=== PATIENT | female | born 1965 | race Caucasian/White ===

== ENCOUNTER 2017-08-10 09:55 | Outpatient (RCR) | payer MEDICAID, SELFPAY ==
--- NOTE | 2017-08-11 11:09 | HP.OTFCE_ITS ---
HP OT Functional Capacity Eval - Task Lift Floor (Occasional 1-33% of Day): 10 lbs Floor (Frequent 34-66% of Day): negligible Floor (Constant 67-100% of Day): negligible Knee (Occasional 1-33% of Day): 10 lbs Knee (Frequent 34-66% of Day): negligible Knee (Constant 67-100% of Day): negligible Waist (Occasional 1-33% of Day): 10 lbs Waist (Frequent 34-66% of Day): negligible Waist (Constant 67-100% of Day): negligible Shoulder (Occasional 1-33% of Day): 10 lbs Shoulder (Frequent 34-66% of Day): negligible Shoulder (Constant 67-100% of Day): negligible Shoulder PDL: Sedentary Overhead (Occasional 1-33% of Day): 10 lbs Overhead (Frequent 34-66% of Day): negligible Overhead (Constant 67-100% of Day): negligible Overhead PDL: Sedentary Comments: Lorraine noted medical lifting restiction og 10 lbs which is what threshold was at this time despite restriction. She noted some increased pain with lifting tasks and compensations noted. - Work Activity/Posture Bending: Occasional Ability (1-33% of day) Squatting: Occasional Ability (1-33% of day) Kneeling: Occasional Ability (1-33% of day) Comments: 1-10% Reaching out: Frequent Ability (34-66% of day) Reaching up: Frequent Ability (34-66% of day) Sitting: Frequent Ability (34-66% of day) Walking: Occasional Ability (1-33% of day) Comments: 20-30%; needs break after about 5 mins. Standing: Frequent Ability (34-66% of day) Comments: 34-40% - Reference Duration Sedentary Sedentary Light Light Light Medium Medium Medium Heavy Very Heavy Heavy Occasional (0-33% of day) Frequent (34-66% of day) Constant (67-100% of day) 10 # Negligible Negligible 15 # 8 # Negligible 20 # 10# Negli. 35 # 18 # 7 # 50 # 25 # 10 # 75 # 100 # >100 # 38 # 50 # >50 # 15 # 20 # >20 # - Patient Information Height: 12.7 cm Weight:: 140 kg Hand Dominance: R - Medical History Medical History Including Restrictions: She verbalized medical restrictions for L ankle and notes she is not to lift over 10 lbs. She noted she had ankle fx in 2006 that required plate 17 screws. She noted that screws and plate removed in 2008. She verbalized restrictions even through hardware removed. SHe verblized other restrictions but unable to remember all fo them. - Diagnoses Diagnoses: Pt. 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 Currently she is appealing [employer] to get disability. She noted she has been fighting disability since 2009. - Symptoms Symptoms: Lorraine's main symptoms are severe headaches due to hemorrhages and stent surgery. Completed - Pain Pain: Pt. notes that pain 2/10 generalized t/o body at L shoulder, cervical spine, and L yoselyn. Pain increased to 3-4/10 pain. - Work History Work History: Pt. has been unemployed since 2009. She notes she was previously on light duty for 3 years. She worked for [employer] for 1x month in [place] prior to fx L ankle. [employer] let her go in 2009 according to Pt. due to not being able to accomodate light duty. 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 - ADLS ADLS: Pt. lives in [facility] with 5 steps to enter with handrail 1x side. Once in [place] everything is [place]. She noted family brings food over for her and she mircrowaves. She is still driving and notes that family will take grocery shopping when hadaches are bad. She noted botox injections every 3 months has limited heads from daily to 2x weekly. She notes that daughter , sister, and two brothers come over daily-weekly to help. She notes she has someone else around when showering due to recent syncope episode. She is (I) with ADls and some IADls. She doesn't has grab bars but does have seat in shower. No pets to care for. - Physical Examination ROM: B UE: WFL with some pain with ER in low back. B UE: WFL. Strength: B UE. deltoids: R 4-/5, L 4-/5. biceps: R 4/5, L 4/5. triceps: R 4/ 5, L 4/5. wrist extension: R 4-/5, L 4-/5. B LE: hip flexors: R 4/5, L 4/5. quadracepts: R 4/5, L 4/5. hamstrings: R 4/5, L 4/5. hip adductors: R 4/5, L 4/5. hip abductors: R 4/5, L 4/5. dorsiflexion: R 4/5, L 4/5. plantar flexion: R 4/5, L 4/5 Right Flat Ironer Strength Average: 39.66 Left Flat Ironer Strength Average: 43.00 Right Lateral Pinch Average: 14.66 Left Lateral Pinch Average: 11.33 Right Tripod Pinch Average: 14.33 Left Tripod Pinch Average: 13.66 Sensation: Pt. denies numbness and tingling B UE. She notes she does has increased pain and numbess in R LE. She noted increased frequency of burning hands when cooking so tried to limited cooking. Monofliment test completed. Results are as follows: R 2nd 3.22 3rd 3.22 4th 3.61 5th 3.22 thumb 3.61 ;L 2nd 3.22 3rd 3.22 4th 3.61 5th 3.22 thumb 3.22. Fine Motor: Pt. FMC is decreased speed but intact and WFL. Completed 9 hole pegboard test R 24.62 s, L 20.38 s Balance: Balance is fair at this time. She has increased instability on B sides. Balance is WFL. - Non Material Handling Activities Bendinx, 5x , seated break due to lightheadedness and increased loss of balanceanterior and posterior loss of balance. Needed to use extenral support of desk to promote stability. Pain 2/10. Lightheadedness and consistent anterior and posterior loss of balance are limiting factors at this time. Squattinx, 10x with external suppor tof desk, seated break, unable to complete last set of 10 fast. Pt. noted pain increased to 3/10 over hip. Needed external support of desk due to increased LOB with tasks and need for stability. Increased SOB, fair body mechanics, and need for seated break prior to continuing. Decreased LOB and increased lightheadedness limiting at this time. Kneelinx, pain increased to 5/10 pain when kneeling and sibsiding moving upright, completed 3x and ended with needed seated break. Fair bodymechnics with increased lateral lean to L side with use of extenral support of desk. Increased crepitus of R knee when completing task. Pain increased to 5/10 pain mid kneel and then subsided when returning to upright. Pain limiting factor for this activity. Reaching out/up: from standing position: Reaching out: 3x, 10x, 10 fast. Good body mechanics, no LOB, some SOB. Reaching up: 3x, 10x, 10 fast. Good body mechanics, no LOB, some SOB. Walking: Completed 15 mins of walking with 6 breaks 2 sitting and 4 standing t/ o session. First break at 3 mins 30 seconds. Exhibiting antalgic gait and increased lateral LOB to both R and L. Standin mins Sittin-40 mins. Completed with needed weight shifts as needed. Climbing Stairs: Able to complete 10 stairs with altenraing foot pattern and use fo B handrails. - Dynamic Occasional Lifting Capacity Floor Lift: 10 lbs. Pain between 3-4/10 pain. Knee Lift: 10 lbs. Pain between 3-4/10 pain. Waist Lift: 10 lbs. Pain between 3-4/10 pain. Shoulder Lift: 10 lbs. Pain between 3-4/10 pain. Overhead Lift: 10 lbs. Pain between 3-4/10 pain. Carryin lbs. Pain between 3-4/10 pain. Comments: Completed MoCA screen for cognitive performance. She may benefit from further cognitive testing. She scored
--- NOTE | 2017-08-11 11:09 | HP.OTFCE.D ---
FCE D/C Summary - Discharge JAVIER SAL was seen for a one time visit for an FCE on 08/10/17 and is discharged.
--- NOTE | 2017-08-13 11:26 | HP.OTFCE_ITS ---
HP OT Functional Capacity Eval - Task Lift Floor (Occasional 1-33% of Day): 10 lbs Floor (Frequent 34-66% of Day): negligible Floor (Constant 67-100% of Day): negligible Floor PDL: Sedentary Knee (Occasional 1-33% of Day): 10 lbs Knee (Frequent 34-66% of Day): negligible Knee (Constant 67-100% of Day): negligible Knee PDL: Sedentary Waist (Occasional 1-33% of Day): 10 lbs Waist (Frequent 34-66% of Day): negligible Waist (Constant 67-100% of Day): negligible Waist PDL: Sedentary Shoulder (Occasional 1-33% of Day): 10 lbs Shoulder (Frequent 34-66% of Day): negligible Shoulder (Constant 67-100% of Day): negligible Shoulder PDL: Sedentary Overhead (Occasional 1-33% of Day): 10 lbs Overhead (Frequent 34-66% of Day): negligible Overhead (Constant 67-100% of Day): negligible Overhead PDL: Sedentary Comments: Lorraine noted medical lifting restiction of 10 lbs which is what threshold was at this time despite restriction. She noted some increased pain with lifting tasks and compensations noted. - Work Activity/Posture Bending: Occasional Ability (1-33% of day) Squatting: Occasional Ability (1-33% of day) Kneeling: Occasional Ability (1-33% of day) Comments: 1-10% Reaching out: Frequent Ability (34-66% of day) Reaching up: Frequent Ability (34-66% of day) Sitting: Frequent Ability (34-66% of day) Walking: Occasional Ability (1-33% of day) Comments: 20-30%; needs break after about 5 mins. Standing: Frequent Ability (34-66% of day) Comments: 34-40% - Reference Duration Sedentary Sedentary Light Light Light Medium Medium Medium Heavy Very Heavy Heavy Occasional (0-33% of day) Frequent (34-66% of day) Constant (67-100% of day) 10 # Negligible Negligible 15 # 8 # Negligible 20 # 10# Negli. 35 # 18 # 7 # 50 # 25 # 10 # 75 # 100 # >100 # 38 # 50 # >50 # 15 # 20 # >20 # - Patient Information Height: 12.7 cm Weight:: 140 kg Hand Dominance: R - Medical History Medical History Including Restrictions: She verbalized medical restrictions for L ankle and notes she is not to lift over 10 lbs. She noted she had ankle fx in 2006 that required plate 17 screws. She noted that screws and plate removed in 2008. She verbalized restrictions even through hardware removed. SHe verbalized other restrictions but unable to remember all of them. - Diagnoses Diagnoses: Pt. PMHx includes the follows: ankle fx 3 locations 2006, ORIF 2006, Ankle ORIF removed 2008, aneurysms 2007 with clipping, stent and three coils on L hemisphere due to aneurysm, h/o smoking and has quit. Currently she is appealing [employer] to get disability. She noted she has been fighting disability since 2009. - Symptoms Symptoms: Lorraine's main symptoms are severe headaches due to aneurysm's and stent surgery. She noted some decreased STM. - Pain Pain: Pt. notes that pain 2/10 generalized t/o body at L shoulder, cervical spine, and L yoselyn. Pain increased to 3-4/10 pain. - Work History Work History: Pt. has been unemployed since 2009. She notes she was previously on light duty for 3 years. She worked for [employer] for 1x month in [place], [place] prior to fx of L ankle. [employer] let her go in 2009 according to Pt. due to not being able to accomodate light duty. 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 - Behavioral Behavioral: Lorraine was pleasant and cooperative. She was willing to attempt all tasks and appeared to give best effort when completing tasks. - ADLS ADLS: Pt. lives in [facility] with 5 steps to enter with handrail 1x side. [place]. She noted family brings food over for her and she mircrowaves meals. She is still driving and notes that family will take grocery shopping when hadaches are bad. She noted botox injections every 3 months has limited headaches from daily to 2x weekly. She notes that daughter , sister, and two brothers come over daily-weekly to help and call daily to check up on her. She notes she has someone else around when showering due to recent syncope episode. She is (I) with ADls and some IADls. She doesn't has grab bars but does have seat in shower. No pets to care for. - Physical Examination Physical Examination: Lorraine is 51 y/o who arrived for FCE on this date. She presented with ROM and strength WFL. She exhibits decreased endurance, balance, and ability to complete lifting of loaded tasks. She appears to have increased LOB with increased vestibular input and moving to different planes of with head. Lorraine noted she has recieved PT services for vestibular functioning, balance, and back pain over the last few years. She noted that she often becomes lightheaded when bending forward or changing positions which has been a result of aneurysms and shent being placed. Further details of performance can be observed in following sections. Due to increased LOB with bending and other repetitive movements tasks as well as physical performance with lifting she scored within the sedentary work area. MoCA screen completed and she scored a 26 which is normal. However, for language and STM some increased difficulty noted. May be benefical for additional cogitive testing. Based on performance she should not complete more than sedentary work at this time. ROM: B UE: WFL with some pain with ER of shoulder in low back. B UE: WFL. Strength: B UE. deltoids: R 4-/5, L 4-/5. biceps: R 4/5, L 4/5. triceps: R 4/ 5, L 4/5. wrist extension: R 4-/5, L 4-/5. B LE: hip flexors: R 4/5, L 4/5. quadracepts: R 4/5, L 4/5. hamstrings: R 4/5, L 4/5. hip adductors: R 4/5, L 4/5. hip abductors: R 4/5, L 4/5. dorsiflexion: R 4/5, L 4/5. plantar flexion: R 4/5, L 4/5 Right Stone Finisher Strength Average: 39.66 Right Stone Finisher Strength Percentile: 64th Left Stone Finisher Strength Average: 43.00 Left Stone Finisher Strength Percentile: 67th Right Lateral Pinch Average: 14.66 Right Lateral Pinch Percentile: 75th Left Lateral Pinch Average: 11.33 Left Lateral Pinch Percentile: 50th Right Tripod Pinch Average: 14.33 Right Tripod Pinch Percentile: 75th Left Tripod Pinch Average: 13.66 Left Tripod Pinch Percentile: 75th Sensation: Pt. denies numbness and tingling B UE. She notes she does has increased pain and numbess in R LE. She noted increased frequency of burning hands when cooking so tried to limited cooking. Monofilament test completed. Results are as follows: R 2nd 3.22 3rd 3.22 4th 3.61 5th 3.22 thumb 3.61 ;L 2nd 3.22 3rd 3.22 4th 3.61 5th 3.22 thumb 3.22. Fine Motor: Pt. FMC is decreased speed but intact and WFL. Completed 9 hole pegboard test R 24.62 s(25th percentile), L 20.38 s (75th percentile). Balance: Balance is fair at this time. She has increased instability on B sides. Needs exertnal supprot fo desk to complete tasks. Ehibits both anterior and posterior as well as latral LObw ith fx movements. Balance is WFL but descepancies with increased movement of head. - Non Material Handling Activities Bendinx, 5x , seated break due to lightheadedness and increased loss of balance both anteriorly and posteriorly. Needed to use external support of desk to promote stability. Therapists SBA for safety purposes. Educated to complete tasks as tolerated. Pain 2/10. Lightheadedness and consistent anterior and posterior loss of balance are limiting factors at this time. Squattinx, 10x with external support of desk, seated break, unable to complete last set of 10 fast. Therapists SBA for safety purposes. Educated to complete tasks as tolerated. Pt. noted pain increased to 3/10 over hip. Needed external support of desk due to increased LOB with tasks and need for stability. Increased SOB, fair body mechanics, and need for seated break prior to continuing. Decreased LOB and increased lightheadedness limiting at this time. Kneelinx, pain increased to 5/10 pain when kneeling and sibsiding moving upright, completed 3x and ended with needed seated break. Fair body mechnics with increased lateral lean to L side with use of extenral support of desk. Increased crepitus of R knee when completing task. Pain increased to 5/10 pain mid kneel and then subsided when returning to upright. Pain limiting factor for this activity. Reaching out/up: from standing position: Reaching out: 3x, 10x, 10 fast. Good body mechanics, no LOB, some SOB. Reaching up: 3x, 10x, 10 fast. Good body mechanics, no LOB, some SOB. Walking: Completed 15 mins of walking with 6 breaks 2 sitting and 4 standing t/ o session. First break at 3 mins 30 seconds. Exhibiting antalgic gait and increased lateral LOB to both R and L. Standin mins with compensations noted of lateral leaning and weightshifts as needed to management pain. Sittin-40 mins. Completed with needed weight shifts as needed. Climbing Stairs: Able to complete 10 stairs at own pace with alernating foot pattern and use fo B handrails. WFL. - Dynamic Occasional Lifting Capacity Floor Lift: 10 lbs. Pain between 3-4/10 pain. Poor body mechanics of narrow BENNY and increased trunk flexion placing increased strain on thoracic and lumbar areas. Balance WFL. Knee Lift: 10 lbs. Pain between 3-4/10 pain. Poor body mechanics of narrow BENNY and increased trunk flexion placing increased strain on thoracic and lumbar areas. Balance WFL. Waist Lift: 10 lbs. Pain between 3-4/10 pain. Body mechanics fair at this time. Some twisting of lower lumbar to manipulate to designated location Shoulder Lift: 10 lbs. Pain between 3-4/10 pain. Body mechanics poor. Increased compensatiosna noted through increased holding of breath, increased trunk extension, increased cervical flexion, and moving to toes to manipulate box. Overhead Lift: 10 lbs. Pain between 3-4/10 pain. Carryin lbs. Pain between 3-4/10 pain. Comments: Completed MoCA screen for cognitive performance. She may benefit from further cognitive testing. She scored 26/30. Which is scores as normal normal but on borderline of normal and mild cognitive deficits. She appears to have some STM deficits (still WFL) which is is already aware of as well and some repeated language deficits. Notes no previous langauge deficits prior to aneursyms.
== END 2017-08-10 19:00 | disposition home or self-care (01) ==
LOC: OT 09:55
PROVIDERS: Family Provider Family Medicine; PCP Family Medicine; Visit Provider Anesthesiology Pain Medicine
DX: M54.16 Radiculopathy, lumbar region (principal)
CPT/HCPCS: 97750

== ENCOUNTER → 2017-11-11 11:59 | Outpatient (CLI) | payer MEDICAID, SELFPAY ==
--- NOTE | 2017-11-11 12:04 | RAD_ITS ---
STUDY: X-RAY - THORACIC SPINE REASON FOR EXAM: Female, 51 years old. Back pain. TECHNIQUE: 3 view(s) of the thoracic spine were obtained. COMPARISON: 01/21/2017. FINDINGS: Normal kyphosis of the thoracic spine. There is no substantial scoliosis. There is multilevel endplate spondylosis of the thoracic vertebrae. There is multilevel disc space narrowing of the thoracic spine. No fractures. The soft tissue structures are unremarkable. RAD/Thoracic Spine 2 Views IMPRESSION: No acute abnormality. Mild degenerative changes, stable. Electronically Signed: Mynor Liriano MD at 23:43 EDT , Service support ,
== END ==
PROVIDERS: Family Provider Family Medicine; PCP Family Medicine; Visit Provider Anesthesiology Pain Medicine
DX: M47.894 Other spondylosis, thoracic region (principal); M48.04 Spinal stenosis, thoracic region
CPT/HCPCS: 72070

== ENCOUNTER 2017-12-18 10:01 | Day surgery (SDC) | payer MEDICAID, SELFPAY ==
[2017-12-18] VITALS (7 sets, daily range): BP systolic 110–122; BP diastolic 75–93; PULSE 62–71; RESP 16; TEMP 36.6–36.9; O2SAT 99–100; BMI 27.3
--- NOTE | 2017-12-18 11:15 | RAD_ITS ---
STUDY: EPIDURAL INJECTION REASON FOR EXAM: Female, 52 years old. Pain RADIATION DOSAGE (If Supplied By Facility): CTDIvol = ( ) mGy, DLP = ( ) mGycm. Individualized dose optimization techniques were used for this CT.? FLUOROSCOPY TIME (if supplied): (0:12) minutes/seconds TECHNIQUE: Intraoperative study COMPARISON: None. FINDINGS: Single limited intraoperative view shows placement of the needle for epidural block at T10/11. RAD/Spine 1 View Any Level IMPRESSION: Epidural block at T10/11 Electronically Signed: Tom Mcarthur MD at 13:17 EDT , Service support ,
[2017-12-18] MEDS: Triamcinolone Acetonide 40 MG/ML Vial (12:06)
== END 2017-12-18 12:53 | disposition home or self-care (01) ==
LOC: SDC 10:02 → AC 10:03
PROVIDERS: Family Provider Family Medicine; PCP Family Medicine; Visit Provider Anesthesiology Pain Medicine
PROC: 3E0S3BZ Introduction of Anesthetic Agent into Epidural Space, Percutaneous Approach (ICD-10-PCS; CPT 62321; principal; 2017-12-18 11:10)
DX: M51.34 Other intervertebral disc degeneration, thoracic region (principal); M54.14 Radiculopathy, thoracic region; M54.5 Low back pain; F32.9 Major depressive disorder, single episode, unspecified; F17.200 Nicotine dependence, unspecified, uncomplicated; Z79.899 Other long term (current) drug therapy
CPT/HCPCS: 62321; 64490; 72020; J7120

== ENCOUNTER → 2018-02-12 15:45 | Outpatient (CLI) | payer MEDICAID, SELFPAY ==
--- NOTE | 2018-02-12 15:47 | CT_ITS ---
STUDY: CT BRAIN WITHOUT CONTRAST REASON FOR EXAM: Female, 52 years old. Dizziness and confusion is. Frequent falls. Brain aneurysms, clips, coils and stents. RADIATION DOSAGE (If Supplied By Facility): CTDIvol = ( 44.99 ) mGy, DLP = ( 745.49 ) mGycm TECHNIQUE: Transaxial CT imaging of the brain was performed without administration of intravenous contrast material. Individualized dose optimization techniques were used for this CT. COMPARISON: CT head with and without contrast 04/13/2017. FINDINGS: Normal soft tissue structures. Right-sided craniotomy defect from previous aneurysmal clipping in the region of the right posterior communicating artery. Metallic streak artifacts arising from stent-assisted endovascular coil therapy in front of the upper medulla. 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 Normal size ventricles and extra-axial spaces for the patient's age. Small subcortical white matter hypodensities are nonspecific. They were present previously. Normal basal ganglia and thalami. Normal brainstem. Normal cerebellum. There is no intracranial hemorrhage. There are no findings of an acute ischemic infarction. Normal visualized paranasal sinuses. CT/Brain/Head without Contrast IMPRESSION: 1. No CT evidence of intracranial bleeding, acute ischemic infarct or acute intracranial abnormality. 2. 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 3. Right craniotomy with an aneurysmal clip in the region of the right posterior communicating artery. 4. No significant interval change when compared to 04/13/2017. Electronically Signed: Khris Rivera MD at 12:23 EDT , Service support ,
== END ==
PROVIDERS: Family Provider Family Medicine; PCP Family Medicine; Visit Provider Psychiatry & Neurology Neurology
DX: R42 Dizziness and giddiness (principal)
CPT/HCPCS: 70450

== ENCOUNTER 2018-05-27 11:30 | Outpatient (RCR) | payer MEDICAID, SELFPAY ==
--- NOTE | 2018-03-15 15:34 | HP.PTEVAL ---
Patient's Visit Information JAVIER SAL is a 52 year old F referred to Physical Therapy by Nayla Parrish with a diagnosis of BACK PAIN AND LEG WEAKNESS. Date of Evaluation: 03/15/18 Physical Therapist: Radha Pan - Visit Plan Frequency: 2-3x /Week Duration: 4-6 Weeks Plan: AQUATIC THERAPY FOR PAIN RELEIF, POSTURE CORRECTION/STRENGTHENING, INSTRUCTION IN APPROPRIATE BODY MECHANICS AND ACTIVITY MODIFICATIONS. DLS STARTING WITH A NEUTRAL SPINE PROGRESSING ROM TOLERATED. DEVON LE ROM, STRETCHING AND STRENGTHENING. HEP INSTRUCTION. - Subjective Subjective: Work/Leisure: UNEMPLOYEED SINCE 2009. Disability: NO. Present symptoms: PAIN LEFT BACK, LEFT HIP, LEFT THIGH, LEFT LEG AND LEFT FOOT. PATIENT REPORTS SHE RECIEVED AN YESENIA ABOUT 1 MONTH AGO AND BEFORE THE SHOT SHE HAD SX'S IN THE RIGHT LEG TOO. ALSO HAD NUMBNESS AND TINGLING IN BOTH LEGS BEFORE THE INJECTION. Present since: BACK PAIN FOR 6 OR MORE YEARS BUT LEG SX'S STARTED LATER (IN THE LAST COUPLE OF YEARS). Pain Scale: WORST 8/10, LEAST 2-3/10. Currently: 5/10. Commenced as a result of: NO APPARENT REASON. Symptoms at onset: BACK. Worse: JUST ABOUT EVERYTHING. WALKING AND SITTING. Better: IBUPROFEN. Disturbed sleep: YES. Previous history/Previous treatment: PATIENT REPORTS SHE HAS HAD A LOT OF YESENIA'S OVER THE LAST 6 YEARS. NO CHIRO. HAS HAD LAND PT IN THE PAST - SOME BENEFIT. NO BACK SURGERY. Coughing/sneezing/straining: NO. Gait: PATIENT REPORTS HER WALKING IS DISTANCE LIMITED DUE TO PAIN AND IT CAUSES HER TO BEND FORWARD. Difficulty initiating urinatin: NO. Accidents: NO. Unexplained weight loss: NO. Imagin - LUMBAR X-RAY - MILD NARROWING OF L3-4. MILD NARROWING L5-S1. SEE [facility] E[facility] - IT APPEARS THAT JUNG HAD X-RAYS TAKEN MORE THAN ONE IN Dec OF HER LUMBAR SPINE. PMH: BRAIN ANURYSMS - STENTS AND COILS. LEFT ANKLE FX 2006. SX FOR TUBAL . NO CA. NO STROKE. NO HEART ATTACKS. OTHER: PATIENT REPORTS DR. PARRISH TOLD HER THAT HER BACK IS A MESS BUT IT DOESN'T NEED SURGERY. PATIENT REPORTS SHE HAS TO DO PT BEFORE SHE CAN HAVE AN MRI. SHE STATES SHE THINKS IT IS BURSITIS NOT HER BACK THAT IS CAUSING THE PAIN DOWN HER LEG. PRIOR LEVEL OF FUNCTION: PATIENT REPORTS SHE USE TO BE ABLE TO SIT UNLIMITED BUT NOW SHE CAN ONLY SIT FOR 5-10 MINUTES BEFORE THE PAIN INCREASES. SHE USE TO BE ABLE TO STAND TO DO HER DISHES ABOUT 6 MONTHS AGO AND NOW SHE CAN'T DUE TO LLE PAIN. SHE ALSO USE TO BE ABLE TO SIT ON THE FLOOR TO PLAY WITH HER GRANDCHILD AND NOW SHE CAN NOT. - Objective Sitting/Standing Posture: POOR. INCREASED TRUNK FLEXION. Lordosis: REDUCED. Active Correction of posture: WORSE. Other Observations: INDEP GAIT INTO PT WITHOUT ANY ASSISTIVE DEVICES BUT WITH DECREASED CADANCE AND INCREASED TRUNK FLEXION. Motor deficit: DEVON LE'S 5/5 WITH MMT'ING EXCEPT DEVON HIPS GRADED 4/5 AND LEFT KNEE FLEXION 4/5. Sensory deficit: NO. ROM deficit: DEVON HS AND GASTROC SOLEUS TIGHTNESS. Reflexes: 2/3 DEVON LE'S. Dural Signs: POSITIVE DEVON LE'S LEFT > RIGHT. Lumbar mvmt loss: flex - MINIMAL. ext - NINI. R SG - MOD. L SG - MOD. PATIENT WITH C/O INCREASED BACK PAIN WITH LUMBAR ROM TESTING ALL PLANES. Core strength: POOR. Palpation: PATIENT HAS TENDERNESS WITH PALPATION THROUGHOUT THE LUMBAR SPINE AND INTO THE LEFT BUTTOCK AND LATERAL HIP AND THIGH REGIONS. OTHER: POSITIVE DEVON VALERIE TESTS. POSITIVE DEVON SLR TESTING. - Goals Goal 1:: DECREASE C/O BACK AND LLE SX'S. Goal Time Frame: 4-6 Weeks Goal 2:: IMPROVE BENDING, LIFTING, STANDING, WALKING, ADL AND SLEEP FUNCTION Goal Time Frame: 4-6 Weeks Goal 3:: INSTRUCT IN PROPHYLAXIS Goal Time Frame: 4-6 Weeks - Rehabilitation Potential Rehabilitation Potential: Fair - Anticipated Interventions Patient/Client Instruction: Educate patient on: Condition, Plan of Care, Risk Factors, Benefits of Fitness Program For the Purpose of:: To improve self management Therapeutic Exercise to Include: Strength training, Body mechanics, Postural training, Flexibilty training, Gait and locomotor training, In an aquatic setting, Active ROM, Dynamic Lumbar Stabilization For the Purpose of:: To decrease pain, To increase ROM, To improve muscle performance and motor function, To increase tolerance to activity/condition/position, To improve ability of physical actions for home/community/work/leisure, To improve gait and locomotor functions Thank you for the opportunity to evaluate your patient. For Medicare and Medicare HMO plans, please review the plan of care and approve it. It will need to be FAXED BACK to us at [phone] for Medicare purposes. Please let me know if there are questions or concerns regarding this plan of care. Physician Signature: Date:
--- NOTE | 2018-04-19 10:06 | HP.PTREVAL ---
Nayla Parrish, It has been my pleasure to treat JAVIER SAL over the last 12 visits for BACK PAIN AND LEG WEAKNESS. Please see the progress note below for an update on the physical therapy plan of care! Subjective: PATIENT REPORTS SHE IS ABLE TO CORRECT HER POSTURE TO HELP HER PAIN ON A DAILY BASIS NOW. SHE REPORTS THIS HAS ALLOWED HER TO START WALKING BETTER AND PICK THINGS UP BETTER. LOW BACK PAIN NOW RANGING 1-6/10. LEFT HIP/THIGH PAIN RANGING 2-6/10. PATIENT REPORTS SHE IS CONSIDERING A MEMBERSHIP HERE AT [employer] FOR THE . PATIENT REPORTS GREATLY REDUCED PAIN WHEN IN THE POOL. PATIENT REPORTS SHE WOULD LIKE TO BE MORE CHALLENGED IN THE POOL AND LERARN MORE EX'S. PATIENT REPORTS SHE STILL GETS LEFT GROIN PAIN OFF AND ON BUT IT IS GETTING BETTER. PATIENT POINTS TO HER LEFT LOW BACK AND POSTERIOR NOT LATERAL HIP REGION WHEN SHE REPORTS HIP PAIN. Objective/Function: INDEP GAIT INTO PT WITHOUT ANY ASSISTIVE DEVICES BUT WITH DECREASED CADANCE AND INCREASED TRUNK FLEXION. Motor deficit: DEVON LE'S 5/5 WITH MMT'ING EXCEPT DEVON HIPS GRADED 4/5 AND LEFT KNEE FLEXION 4/5. Sensory deficit: NO. ROM deficit: DEVON HS AND GASTROC SOLEUS TIGHTNESS. Reflexes: 2/3 DEVON LE'S. Dural Signs: NEGATIVE RIGHT AND POSITIVE LLE. Lumbar mvmt loss: flex - NIL. ext - MOD. R SG - MOD. L SG - MOD. PATIENT WITH C/O INCREASED BACK PAIN WITH LUMBAR ROM TESTING ALL PLANES AND LEFT POSTERIOR HIP REGION. NO THIGH OR INCREASED GROIN PAIN REPORTED WITH TESTING. Core strength: POOR. Palpation: PATIENT HAS TENDERNESS WITH PALPATION THROUGHOUT THE LUMBAR SPINE AND INTO THE LEFT BUTTOCK AND LATERAL HIP AND THIGH REGIONS. OTHER: POSITIVE DEVON VALERIE TESTS BUT INCREASED PAIN IN IPSILATERAL LOW BACK REGIONS NOT HIPS OR GROIN TODAY. POSITIVE DEVON SLR TESTING. Plan Plan: CONTINUE AQUATIC THERAPY 2X'S A WEEK USING THE WATER FOR PAIN CONTROL THER EX IS ADVANCED TOLERATED AND LAND PT ONE TIME A WEEK PER ORIGINAL POC. CONSIDER LOW BACK US. PATIENT AGREEABLE Goals Goal 1:: DECREASE C/O BACK AND LLE SX'S. Goal Time Frame: 4-6 Weeks Goal Progress: Progressing Goal 2:: IMPROVE BENDING, LIFTING, STANDING, WALKING, ADL AND SLEEP FUNCTION Goal Time Frame: 4-6 Weeks Goal Progress: Progressing Goal 3:: INSTRUCT IN PROPHYLAXIS Goal Time Frame: 4-6 Weeks Goal Progress: Progressing Anticipated Interventions Patient/Client Instruction: Educate patient on: Condition, Plan of Care, Risk Factors, Benefits of Fitness Program For the Purpose of:: To improve self management Therapeutic Exercise to Include: Strength training, Body mechanics, Postural training, Flexibilty training, Gait and locomotor training, In an aquatic setting, Active ROM, Dynamic Lumbar Stabilization For the Purpose of:: To decrease pain, To increase ROM, To improve muscle performance and motor function, To increase tolerance to activity/condition/position, To improve ability of physical actions for home/community/work/leisure, To improve gait and locomotor functions Please do not hesitate to contact me at [phone] by phone or if you have questions or concerns regarding this new plan of care! Sincerely, Radha Pan
--- NOTE | 2018-05-27 12:01 | HP.PTDCSUM_ITS ---
HP - PT D/C Summary It has been my pleasure to treat JAVIER SAL under orders from Nayla Parrish MD, for the diagnosis of BACK PAIN AND LEG WEAKNESS for a total of 23 visit(s). Discharge Date: Please see the following information for a summary of their discharge status. - Subjective Subjective: PATIENT REPORTS HER FAMILY IS STILL PLANNING TO GET HER A MEMBERSHIP HERE AT [employer]. PATIENT STATES YOU GUYS HAVE TAUGHT ME A LOT AND IT HELPS. SHE REPORTS SHE IS A LOT BETTER. GOT APPROVAL FOR UPPER BACK INJECTION AND WAITING TO GET SCHEDULED. PATIENT REPORTS INCREASED PAIN SLEEPING ON LEFT SIDE STILL. PATIENT REPORTS SHE IS ABLE TO CORRECT HER POSTURE TO HELP HER PAIN ON A DAILY BASIS. SHE REPORTS THIS HAS ALLOWED HER TO START WALKING BETTER AND PICK THINGS UP BETTER. LOW BACK PAIN NOW RANGING 1-6/10. LEFT HIP/THIGH PAIN RANGING 2-6/10. PATIENT REPORTS GREATLY REDUCED PAIN WHEN IN THE POOL. NO LONGER HAVING GROIN PAIN. - Pain back Pain Intensity (Out of 10): 1 leg Pain Intensity (Out of 10): 1 - Overall Improvement % Improvement: 75 - Objective Objective/Function: INDEP GAIT INTO PT WITHOUT ANY ASSISTIVE DEVICES BUT STILL WITH DECREASED CADANCE AND INCREASED TRUNK FLEXION. Motor deficit: DEVON LE'S 5/5 WITH MMT'ING EXCEPT DEVON HIPS GRADED 4/5. Sensory deficit: NO. ROM deficit: DEVON HS AND GASTROC SOLEUS TIGHTNESS. Reflexes: 2/3 DEVON LE'S. Dural Signs: NEGATIVE RIGHT AND STILL POSITIVE LLE. Lumbar mvmt loss: flex - NIL. ext - MOD. R SG - MOD. L SG - MOD. PATIENT WITH C/O INCREASED BACK PAIN WITH LUMBAR ROM TESTING ALL PLANES. NO THIGH OR INCREASED GROIN PAIN REPORTED WITH TESTING. Core strength: POOR. Palpation: PATIENT HAS TENDERNESS WITH PALPATION IN THE LUMBAR SPINE AND INTO THE LEFT BUTTOCK AND LATERAL HIP REGIONS BUT LUMBAR PAIN IS MORE LOCALIZED TO THE LOWER REGION NOW. OTHER: NEGATIVE DEVON VALERIE TESTS TODAY. AND NEGATIVE DEVON SLR'ING. - Goals Goal 1:: DECREASE C/O BACK AND LLE SX'S. Goal Progress: Not Progressing Goal 2:: IMPROVE BENDING, LIFTING, STANDING, WALKING, ADL AND SLEEP FUNCTION Goal Progress: Not Progressing Goal 3:: INSTRUCT IN PROPHYLAXIS Goal Progress: Not Progressing - Plan Plan: D/C TO INDEP EX. PATIENT AGREEABLE AND EXPRESSING MUCH APPRECIATION FOR EVERYTHING WE HAVE DONE FOR HER. - D/C Information If there are questions or concerns regarding this patient's physical therapy, please feel free to call me at [phone]. Thank you for the referral of this patient. Sincerely, Radha Pan, PT, Cert MDT
== END 2018-05-27 19:00 | disposition home or self-care (01) ==
LOC: PT 11:30
PROVIDERS: Family Provider Family Medicine; PCP Family Medicine; Referring Provider Anesthesiology Pain Medicine; Visit Provider Anesthesiology Pain Medicine
DX: M54.9 Dorsalgia, unspecified (principal); R29.898 Other symptoms and signs involving the musculoskeletal system
CPT/HCPCS: 97110; 97113; 97162; 97530

== ENCOUNTER 2018-06-11 10:41 | Day surgery (SDC) | payer MEDICAID, SELFPAY ==
[2018-06-11 11:10] VITALS: BP 108/82; PULSE 72; RESP 14; TEMP 36.8; O2SAT 95; BMI 25.9
--- NOTE | 2018-06-11 11:50 | RAD_ITS ---
PROCEDURE: Thoracic epidural at the T9-T10 level. DATE OF EXAMINATION: June 11, 2018. INDICATION: Female, 52 years old. Low back pain. FLUOROSCOPY TIME (if supplied): (0:06) minutes/seconds . Single intraoperative cone down view. RADIATION DOSAGE (If Supplied By Facility): CTDIvol = ( ) mGy, DLP = ( ) mGycm Intraoperative imaging provided for epidural.. RAD/Spine 1 View Any Level IMPRESSION: Intraoperative fluoroscopic services provided for epidural at the T9-T10 level. Electronically Signed: Julio Boyce MD at 14:31 EST Tel [phone], Service support ,
[2018-06-11] MEDS: Triamcinolone Acetonide 40 MG/ML Vial (12:38)
[2018-06-11 12:45] VITALS: BP 108/82; BP 127/75; PULSE 63; RESP 16; TEMP 36.4; O2SAT 97
[2018-06-11 12:50] VITALS: BP 108/82; BP 112/83; PULSE 69; RESP 16; O2SAT 96
[2018-06-11 12:55] VITALS: BP 108/82; BP 118/90; PULSE 66; RESP 16; O2SAT 94
[2018-06-11 12:57] VITALS: BP 108/82; BP 121/86; PULSE 70; RESP 16; TEMP 36.3; O2SAT 95
[2018-06-11 13:13] VITALS: BP 108/82
--- OUTSIDE RECORDS SUMMARY | 2018-08-15 19:30 | XMS RPT_ITS ---
:1965 Author Organization OHIP Care Team Providers Name Role Phone Nayla Kim Attending Unavailable Basali, Stormyman Referring Unavailable [facility] Primary Care Unavailable Basali, Nayla Attending Unavailable Basali, Stormyman Referring Unavailable [facility] Primary Care Unavailable Basali, Nayla Attending Unavailable [facility] Primary Care Unavailable Basali, Stormyman Referring Unavailable Basali, Nayla Attending Unavailable Basali, Nayla Referring Unavailable [facility] Primary Care Unavailable BavChi chavez Attending Unavailable Chi Polo Referring Unavailable [facility] Primary Care Unavailable Basali, Nayla Attending Unavailable Basali, Ayman Referring Unavailable [facility] Primary Care Unavailable PROBLEMS PROBLEMS DATE TYPE CONDITION / CODE ATTENDING STATUS SOURCE 05/28/2018 Unknown M54.9 - Basali, Ayman Active [facility], Community unspecified / Hospital M54.9(ICD-10) Repository PROCEDURES PROCEDURES No Procedure Records FoundRESULTS RESULTS SPINE 1 VIEW ANY Observed: 06/11/2018 Status: F Source: [place] LEVEL 4[facility]55 AM [facility] [place] Imaging Services [address] [place] [address] Spine 1 View Any Level MR#: [id number] Acct: [id number] Name: LORRAINE SAL Rep #: [id number] : 1965 F 52 From: Julio Boyce MD PCP: Johann Guy MD Status: [facility] Study: Spine 1 View Any Level Date of Exam: 06/11/18 Exam# [id number] Ordering Dr: Nayla Kim MD PROCEDURE: Thoracic epidural at the T9-T10 level. DATE OF EXAMINATION: June 11, 2018. INDICATION: Female, 52 years old. Low back pain. FLUOROSCOPY TIME (if supplied): (0:06) minutes/seconds . Single intraoperative cone down view. RADIATION DOSAGE (If Supplied By Facility): CTDIvol = ( ) mGy, DLP = ( ) mGycm Intraoperative imaging provided for epidural.. RAD/Spine 1 View Any Level IMPRESSION: Intraoperative fluoroscopic services provided for epidural at the T9-T10 level. Electronically Signed: Julio Boyce MD at 14:31 EST Tel [phone], Service support , CC: Nayla Kim MD; Johann Guy MD Registered Travel Nurse: Signed PT D/C SUMMARY (1) Observed: 05/28/2018 Status: F Source: [place] 10:37 AM [facility] REPOSITORY [facility] [place] [address] / REHABILITATION SERVICES DISCHARGE SUMMARY MR#: [id number] Acct: [id number] Name: LORRAINE SAL Rep #: [id number] : 1965 52 From: Radha Pan PT, Cert. MDT Referring Dr.: Nayla Kim MD Status: REG RCR Insurance: [employer] SELF PAY INSURANCE HP - PT D/C Summary It has been my pleasure to treat LORRAINE SAL under orders from Nayla Kim MD, for the diagnosis of BACK PAIN AND LEG WEAKNESS for a total of 23 visit(s). Discharge Date: Please see the following information for a summary of their discharge status. - Subjective Subjective: PATIENT REPORTS HER FAMILY IS STILL PLANNING TO GET HER A MEMBERSHIP HERE AT [email or web address]. PATIENT STATES YOU GUYS HAVE TAUGHT ME A LOT AND IT HELPS. SHE REPORTS SHE IS A LOT BETTER. GOT APPROVAL FOR UPPER BACK INJECTION AND WAITING TO GET SCHEDULED. PATIENT REPORTS INCREASED PAIN SLEEPING ON LEFT SIDE STILL. PATIENT REPORTS SHE IS ABLE TO CORRECT HER POSTURE TO HELP HER PAIN ON A DAILY BASIS. SHE REPORTS THIS HAS ALLOWED HER TO START WALKING BETTER AND PICK THINGS UP BETTER. LOW BACK PAIN NOW RANGING 1-6/10. LEFT HIP/THIGH PAIN RANGING 2-6/10. PATIENT REPORTS GREATLY REDUCED PAIN WHEN IN THE POOL. NO LONGER HAVING GROIN PAIN. - Pain back Pain Intensity (Out of 10): 1 leg Pain Intensity (Out of 10): 1 - Overall Improvement % Improvement: 75 - Objective Objective/Function: INDEP GAIT INTO PT WITHOUT ANY ASSISTIVE DEVICES BUT STILL WITH DECREASED CADANCE AND INCREASED TRUNK FLEXION. Motor deficit: DEVON LE'S 5/5 WITH MMT'ING EXCEPT DEVON HIPS GRADED 4/5. Sensory deficit: NO. ROM deficit: DEVON HS AND GASTROC SOLEUS TIGHTNESS. Reflexes: 2/3 DEVON LE'S. Dural Signs: NEGATIVE RIGHT AND STILL POSITIVE LLE. Lumbar mvmt loss: flex - NIL. ext - MOD. R SG - MOD. L SG - MOD. PATIENT WITH C/O INCREASED BACK PAIN WITH LUMBAR ROM TESTING ALL PLANES. NO THIGH OR INCREASED GROIN PAIN REPORTED WITH TESTING. Core strength: POOR. Palpation: PATIENT HAS TENDERNESS WITH PALPATION IN THE LUMBAR SPINE AND INTO THE LEFT BUTTOCK AND LATERAL HIP REGIONS BUT LUMBAR PAIN IS MORE LOCALIZED TO THE LOWER REGION NOW. OTHER: NEGATIVE DEVON VALERIE TESTS TODAY. AND NEGATIVE DEVON SLR'ING. - Goals Goal 1:: DECREASE C/O BACK AND LLE SX'S. Goal Progress: Not Progressing Goal 2:: IMPROVE BENDING, LIFTING, STANDING, WALKING, ADL AND SLEEP FUNCTION Goal Progress: Not Progressing Goal 3:: INSTRUCT IN PROPHYLAXIS Goal Progress: Not Progressing - Plan Plan: D/C TO INDEP EX. PATIENT AGREEABLE AND EXPRESSING MUCH APPRECIATION FOR EVERYTHING WE HAVE DONE FOR HER. - D/C Information If there are questions or concerns regarding this patient's physical therapy, please feel free to call me at [phone]. Thank you for the referral of this patient. Sincerely, Radha Pan PT, Danial KAPLANT <Electronically signed by Cert. EUSEBIO Patel PTT> 05/28/18 1037 CC: Nayla Kim MD; Johann Guy MD MALIK Signed RE-EVALUATION - PT (1) Observed: 04/20/2018 Status: F Source: [place] 11:23 AM [facility] REPOSITORY [facility] Physical Therapy [address] [place], [place] [address] Fax REEVALUATION / MEDICARE RECERTIFICATION PHYSICAL THERAPY MR#: [id number] Acct: [id number] Name: LORRAINE SAL Rep #: [id number] : 1965 52 From: Cert. EUSEBIO Patel PTT Referring Dr.: Nayla Kim MD Status: REG RCR Insurance: [facility] SELF PAY INSURANCE Nayla Kim, It has been my pleasure to treat LORRAINE SAL over the last 12 visits for BACK PAIN AND LEG WEAKNESS. Please see the progress note below for an update on the physical therapy plan of care! Subjective: PATIENT REPORTS SHE IS ABLE TO CORRECT HER POSTURE TO HELP HER PAIN ON A DAILY BASIS NOW. SHE REPORTS THIS HAS ALLOWED HER TO START WALKING BETTER AND PICK THINGS UP BETTER. LOW BACK PAIN NOW RANGING 1-6/10. LEFT HIP/THIGH PAIN RANGING 2-6/10. PATIENT REPORTS SHE IS CONSIDERING A MEMBERSHIP HERE AT [email or web address] FOR THE . PATIENT REPORTS GREATLY REDUCED PAIN WHEN IN THE POOL. PATIENT REPORTS SHE WOULD LIKE TO BE MORE CHALLENGED IN THE POOL AND LERARN MORE EX'S. PATIENT REPORTS SHE STILL GETS LEFT GROIN PAIN OFF AND ON BUT IT IS GETTING BETTER. PATIENT POINTS TO HER LEFT LOW BACK AND POSTERIOR NOT LATERAL HIP REGION WHEN SHE REPORTS HIP PAIN. Objective/Function: INDEP GAIT INTO PT WITHOUT ANY ASSISTIVE DEVICES BUT WITH DECREASED CADANCE AND INCREASED TRUNK FLEXION. Motor deficit: DEVON LE'S 5/5 WITH MMT'ING EXCEPT DEVON HIPS GRADED 4/5 AND LEFT KNEE FLEXION 4/5. Sensory deficit: NO. ROM deficit: DEVON HS AND GASTROC SOLEUS TIGHTNESS. Reflexes: 2/3 DEVON LE'S. Dural Signs: NEGATIVE RIGHT AND POSITIVE LLE. Lumbar mvmt loss: flex - NIL. ext - MOD. R SG - MOD. L SG - MOD. PATIENT WITH C/O INCREASED BACK PAIN WITH LUMBAR ROM TESTING ALL PLANES AND LEFT POSTERIOR HIP REGION. NO THIGH OR INCREASED GROIN PAIN REPORTED WITH TESTING. Core strength: POOR. Palpation: PATIENT HAS TENDERNESS WITH PALPATION THROUGHOUT THE LUMBAR SPINE AND INTO THE LEFT BUTTOCK AND LATERAL HIP AND THIGH REGIONS. OTHER: POSITIVE DEVON VALERIE TESTS BUT INCREASED PAIN IN IPSILATERAL LOW BACK REGIONS NOT HIPS OR GROIN TODAY. POSITIVE DEVON SLR TESTING. Plan Plan: CONTINUE AQUATIC THERAPY 2X'S A WEEK USING THE WATER FOR PAIN CONTROL THER EX IS ADVANCED TOLERATED AND LAND PT ONE TIME A WEEK PER ORIGINAL POC. CONSIDER LOW BACK US. PATIENT AGREEABLE Goals Goal 1:: DECREASE C/O BACK AND LLE SX'S. Goal Time Frame: 4-6 Weeks Goal Progress: Progressing Goal 2:: IMPROVE BENDING, LIFTING, STANDING, WALKING, ADL AND SLEEP FUNCTION Goal Time Frame: 4-6 Weeks Goal Progress: Progressing Goal 3:: INSTRUCT IN PROPHYLAXIS Goal Time Frame: 4-6 Weeks Goal Progress: Progressing Anticipated Interventions Patient/Client Instruction: Educate patient on: Condition, Plan of Care, Risk Factors, Benefits of Fitness Program For the Purpose of:: To improve self management Therapeutic Exercise to Include: Strength training, Body mechanics, Postural training, Flexibilty training, Gait and locomotor training, In an aquatic setting, Active ROM, Dynamic Lumbar Stabilization For the Purpose of:: To decrease pain, To increase ROM, To improve muscle performance and motor function, To increase tolerance to activity/condition/position, To improve ability of physical actions for home/community/work/leisure, To improve gait and locomotor functions Please do not hesitate to contact me at [phone] by phone or if you have questions or concerns regarding this new plan of care! Sincerely, Radha Pan <Electronically signed by Radha Pan PT, Cert. MDT> 04/20/18 1123 CC: Nayla Kim MD; Johann Guy MD MALIK Signed For Medicare only, by signing this I certify the plan of care. Physicians Signature Date INITAL EVALUATION (1) Observed: 03/16/2018 Status: F Source: [place] - [place] 11:17 AM [facility] REPOSITORY [facility] [address] [place] [address] Fax REHABILITATION SERVICES INITIAL EVALUATION MR#: [id number] Acct: [id number] Name: LORRAINE SAL Rep #: [id number] : 1965 52 From: Radha Pan PT, Cert. MDT Referring Dr.: Nayla Kim MD Status: REG RCR Insurance: [facility] SELF PAY INSURANCE Patient's Visit Information LORRAINE SAL is a 52 year old F referred to Physical Therapy by Nayla Kim with a diagnosis of BACK PAIN AND LEG WEAKNESS. Date of Evaluation: 03/15/18 Physical Therapist: Radha Pan - Visit Plan Frequency: 2-3x /Week Duration: 4-6 Weeks Plan: AQUATIC THERAPY FOR PAIN RELEIF, POSTURE CORRECTION/STRENGTHENING, INSTRUCTION IN APPROPRIATE BODY MECHANICS AND ACTIVITY MODIFICATIONS. DLS STARTING WITH A NEUTRAL SPINE PROGRESSING ROM TOLERATED. DEVON LE ROM, STRETCHING AND STRENGTHENING. HEP INSTRUCTION. - Subjective Subjective: Work/Leisure: UNEMPLOYEED SINCE 2009. Disability: NO. Present symptoms: PAIN LEFT BACK, LEFT HIP, LEFT THIGH, LEFT LEG AND LEFT FOOT. PATIENT REPORTS SHE RECIEVED AN YESENIA ABOUT 1 MONTH AGO AND BEFORE THE SHOT SHE HAD SX'S IN THE RIGHT LEG TOO. ALSO HAD NUMBNESS AND TINGLING IN BOTH LEGS BEFORE THE INJECTION. Present since: BACK PAIN FOR 6 OR MORE YEARS BUT LEG SX'S STARTED LATER (IN THE LAST COUPLE OF YEARS). Pain Scale: WORST 8/10, LEAST 2-3/10. Currently: 5/10. Commenced as a result of: NO APPARENT REASON. Symptoms at onset: BACK. Worse: JUST ABOUT EVERYTHING. WALKING AND SITTING. Better: IBUPROFEN. Disturbed sleep: YES. Previous history/Previous treatment: PATIENT REPORTS SHE HAS HAD A LOT OF YESENIA'S OVER THE LAST 6 YEARS. NO CHIRO. HAS HAD LAND PT IN THE PAST - SOME BENEFIT. NO BACK SURGERY. Coughing/sneezing/straining: NO. Gait: PATIENT REPORTS HER WALKING IS DISTANCE LIMITED DUE TO PAIN AND IT CAUSES HER TO BEND FORWARD. Difficulty initiating urinatin: NO. Accidents: NO. Unexplained weight loss: NO. Imagin - LUMBAR X-RAY - MILD NARROWING OF L3-4. MILD NARROWING L5-S1. SEE [facility] EMR - IT APPEARS THAT JUNG HAD X-RAYS TAKEN MORE THAN ONE IN Dec OF HER LUMBAR SPINE. PMH: BRAIN ANURYSMS - STENTS AND COILS. LEFT ANKLE FX 2006. SX FOR TUBAL . NO CA. NO STROKE. NO HEART ATTACKS. OTHER: PATIENT REPORTS DR. KIM TOLD HER THAT HER BACK IS A MESS BUT IT DOESN'T NEED SURGERY. PATIENT REPORTS SHE HAS TO DO PT BEFORE SHE CAN HAVE AN MRI. SHE STATES SHE THINKS IT IS BURSITIS NOT HER BACK THAT IS CAUSING THE PAIN DOWN HER LEG. PRIOR LEVEL OF FUNCTION: PATIENT REPORTS SHE USE TO BE ABLE TO SIT UNLIMITED BUT NOW SHE CAN ONLY SIT FOR 5-10 MINUTES BEFORE THE PAIN INCREASES. SHE USE TO BE ABLE TO STAND TO DO HER DISHES ABOUT 6 MONTHS AGO AND NOW SHE CAN'T DUE TO LLE PAIN. SHE ALSO USE TO BE ABLE TO SIT ON THE FLOOR TO PLAY WITH HER GRANDCHILD AND NOW SHE CAN NOT. - Objective Sitting/Standing Posture: POOR. INCREASED TRUNK FLEXION. Lordosis: REDUCED. Active Correction of posture: WORSE. Other Observations: INDEP GAIT INTO PT WITHOUT ANY ASSISTIVE DEVICES BUT WITH DECREASED CADANCE AND INCREASED TRUNK FLEXION. Motor deficit: DEVON LE'S 5/5 WITH MMT'ING EXCEPT DEVON HIPS GRADED 4/5 AND LEFT KNEE FLEXION 4/5. Sensory deficit: NO. ROM deficit: DEVON HS AND GASTROC SOLEUS TIGHTNESS. Reflexes: 2/3 DEVON LE'S. Dural Signs: POSITIVE DEVON LE'S LEFT > RIGHT. Lumbar mvmt loss: flex - MINIMAL. ext - NINI. R SG - MOD. L SG - MOD. PATIENT WITH C/O INCREASED BACK PAIN WITH LUMBAR ROM TESTING ALL PLANES. Core strength: POOR. Palpation: PATIENT HAS TENDERNESS WITH PALPATION THROUGHOUT THE LUMBAR SPINE AND INTO THE LEFT BUTTOCK AND LATERAL HIP AND THIGH REGIONS. OTHER: POSITIVE DEVON VALERIE TESTS. POSITIVE DEVON SLR TESTING. - Goals Goal 1:: DECREASE C/O BACK AND LLE SX'S. Goal Time Frame: 4-6 Weeks Goal 2:: IMPROVE BENDING, LIFTING, STANDING, WALKING, ADL AND SLEEP FUNCTION Goal Time Frame: 4-6 Weeks Goal 3:: INSTRUCT IN PROPHYLAXIS Goal Time Frame: 4-6 Weeks - Rehabilitation Potential Rehabilitation Potential: Fair - Anticipated Interventions Patient/Client Instruction: Educate patient on: Condition, Plan of Care, Risk Factors, Benefits of Fitness Program For the Purpose of:: To improve self management Therapeutic Exercise to Include: Strength training, Body mechanics, Postural training, Flexibilty training, Gait and locomotor training, In an aquatic setting, Active ROM, Dynamic Lumbar Stabilization For the Purpose of:: To decrease pain, To increase ROM, To improve muscle performance and motor function, To increase tolerance to activity/condition/position, To improve ability of physical actions for home/community/work/leisure, To improve gait and locomotor functions Thank you for the opportunity to evaluate your patient. For Medicare and Medicare HMO plans, please review the plan of care and approve it. It will need to be FAXED BACK to us at [phone] for Medicare purposes. Please let me know if there are questions or concerns regarding this plan of care. Physician Signature: Date: <Electronically signed by Radha Pan PT, Cert. MDT> 03/16/18 1117 CC: Nayla Kim MD; Johann Guy MD MALIK Signed For Medicare only, by signing this I certify the plan of care. Physicians Signature Date BRAIN/HEAD WITHOUT Observed: 02/12/2018 Status: F Source: [place] CONTRAST 3:48 PM [facility] REPOSITORY [facility] Imaging Services [address] [place] [address] Brain/Head without Contrast MR#: [id number] Acct: [id number] Name: LORRAINE SAL Rep #: [id number] : 1965 F 52 From: Khris Rivera MD PCP: Johann Guy MD Status: REG CLI Study: Brain/Head without Contrast Date of Exam: 02/12/18 Exam# [id number] Ordering Dr: Chi Polo MD STUDY: CT BRAIN WITHOUT CONTRAST REASON FOR EXAM: Female, 52 years old. Dizziness and confusion is. Frequent falls. Brain aneurysms, clips, coils and stents. RADIATION DOSAGE (If Supplied By Facility): CTDIvol = ( 44.99 ) mGy, DLP = ( 745.49 ) mGycm TECHNIQUE: Transaxial CT imaging of the brain was performed without administration of intravenous contrast material. Individualized dose optimization techniques were used for this CT. COMPARISON: CT head with and without contrast 04/13/2017. FINDINGS: Normal soft tissue structures. Right-sided craniotomy defect from previous aneurysmal clipping in the region of the right posterior communicating artery. Metallic streak artifacts arising from stent-assisted endovascular coil therapy in front of the upper medulla. 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 Normal size ventricles and extra-axial spaces for the patient's age. Small subcortical white matter hypodensities are nonspecific. They were present previously. Normal basal ganglia and thalami. Normal brainstem. Normal cerebellum. There is no intracranial hemorrhage. There are no findings of an acute ischemic infarction. Normal visualized paranasal sinuses. CT/Brain/Head without Contrast IMPRESSION: 1. No CT evidence of intracranial bleeding, acute ischemic infarct or acute intracranial abnormality. 2. 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 3. Right craniotomy with an aneurysmal clip in the region of the right posterior communicating artery. 4. No significant interval change when compared to 04/13/2017. Electronically Signed: Khris Rivera MD at 12:23 EDT , Service support , CC: Chi Polo MD; Johann Guy MD Registered Travel Nurse: Signed SPINE 1 VIEW ANY Observed: 12/18/2017 Status: F Source: [place] LEVEL 4:42 AM [facility] REPOSITORY [facility] Imaging Services [address] [place] [address] Spine 1 View Any Level MR#: [id number] Acct: [id number] Name: LORRAINE SAL Rep #: [id number] : 1965 F 52 From: David Macrthur MD PCP: Johann Guy MD Status: [facility] Study: Spine 1 View Any Level Date of Exam: 12/18/17 Exam# [id number] Ordering Dr: Nayla Kim MD STUDY: EPIDURAL INJECTION REASON FOR EXAM: Female, 52 years old. Pain RADIATION DOSAGE (If Supplied By Facility): CTDIvol = ( ) mGy, DLP = ( ) mGycm. Individualized dose optimization techniques were used for this CT.? FLUOROSCOPY TIME (if supplied): (0:12) minutes/seconds TECHNIQUE: Intraoperative study COMPARISON: None. FINDINGS: Single limited intraoperative view shows placement of the needle for epidural block at T10/11. RAD/Spine 1 View Any Level IMPRESSION: Epidural block at T10/11 Electronically Signed: Tom Mcarthur MD at 13:17 EDT , Service support , CC: Nayla Kim MD; Johann Guy MD Registered Travel Nurse: Signed THORACIC SPINE 2 Observed: 11/11/2017 Status: F Source: [place] VIEWS 12:04 PM [facility] REPOSITORY [facility] Imaging Services [address] [place] [address] Thoracic Spine 2 Views MR#: [id number] Acct: [id number] Name: LORRAINE SAL Rep #: [id number] : 1965 F 51 From: Mynor Liriano MD PCP: Johann Guy MD Status: REG CLI Study: Thoracic Spine 2 Views Date of Exam: 11/11/17 Exam# [id number] Ordering Dr: Nayla Kim MD STUDY: X-RAY - THORACIC SPINE REASON FOR EXAM: Female, 51 years old. Back pain. TECHNIQUE: 3 view(s) of the thoracic spine were obtained. COMPARISON: 01/21/2017. FINDINGS: Normal kyphosis of the thoracic spine. There is no substantial scoliosis. There is multilevel endplate spondylosis of the thoracic vertebrae. There is multilevel disc space narrowing of the thoracic spine. No fractures. The soft tissue structures are unremarkable. RAD/Thoracic Spine 2 Views IMPRESSION: No acute abnormality. Mild degenerative changes, stable. Electronically Signed: Mynor Liriano MD at 23:43 EDT , Service support , CC: Nayla Kim MD; Johann Guy MD Registered Travel Nurse: Signed OT FCE D/C SUMMARY Observed: 08/13/2017 Status: F Source: [place] 11:46 AM [facility] REPOSITORY [facility] [address] [place] [address] Fax REHABILITATION SERVICES DISCHARGE SUMMARY MR#: [id number] Acct: [id number] Name: LORRAINE SAL Rep #: [id number] : 1965 51 From: Betsy Willson Referring Dr.: Nayla Kim MD Status: REG RCR Eval Date: Discharge Date: FCE D/C Summary - Discharge LORRAINE SAL was seen for a one time visit for an FCE on 08/10/17 and is discharged. <Electronically signed by Betsy Willson > 08/13/17 1146 CC: Nayla Kim MD; Johann Guy MD KMB Signed OT FUNCTIONAL CAPACITY Observed: 08/13/2017 Status: F Source: [place] 11:46 AM [facility] REPOSITORY [facility] [address] [place] [address] Fax REHABILITATION SERVICES INITIAL EVALUATION MR#: [id number] Acct: [id number] Name: LORRAINE SAL Rep #: [id number] : 1965 51 From: Betsy Willson Referring Dr.: Nayla Kim MD Status: REG RCR Insurance: [facility] Eval Date: SELF PAY INSURANCE HP OT Functional Capacity Eval - Task Lift Floor (Occasional 1-33% of Day): 10 lbs Floor (Frequent 34-66% of Day): negligible Floor (Constant 67-100% of Day): negligible Floor PDL: Sedentary Knee (Occasional 1-33% of Day): 10 lbs Knee (Frequent 34-66% of Day): negligible Knee (Constant 67-100% of Day): negligible Knee PDL: Sedentary Waist (Occasional 1-33% of Day): 10 lbs Waist (Frequent 34-66% of Day): negligible Waist (Constant 67-100% of Day): negligible Waist PDL: Sedentary Shoulder (Occasional 1-33% of Day): 10 lbs Shoulder (Frequent 34-66% of Day): negligible Shoulder (Constant 67-100% of Day): negligible Shoulder PDL: Sedentary Overhead (Occasional 1-33% of Day): 10 lbs Overhead (Frequent 34-66% of Day): negligible Overhead (Constant 67-100% of Day): negligible Overhead PDL: Sedentary Comments: Lorraine noted medical lifting restiction of 10 lbs which is what threshold was at this time despite restriction. She noted some increased pain with lifting tasks and compensations noted. - Work Activity/Posture Bending: Occasional Ability (1-33% of day) Squatting: Occasional Ability (1-33% of day) Kneeling: Occasional Ability (1-33% of day) Comments: 1-10% Reaching out: Frequent Ability (34-66% of day) Reaching up: Frequent Ability (34-66% of day) Sitting: Frequent Ability (34-66% of day) Walking: Occasional Ability (1-33% of day) Comments: 20-30%; needs break after about 5 mins. Standing: Frequent Ability (34-66% of day) Comments: 34-40% - Reference Duration Sedentary Sedentary Light Light Light Medium Medium Medium Heavy V deo Heavy Heavy - Patient Information Height: 12.7 cm Weight:: 140 kg Hand Dominance: R - Medical History Medical History Including Restrictions: She verbalized medical restrictions for L ankle and notes she is not to lift over 10 lbs. She noted she had ankle fx in 2006 that required plate 17 screws. She noted that screws and plate removed in 2008. She verbalized restrictions even through hardware removed. SHe verbalized other restrictions but unable to remember all of them. - Diagnoses Diagnoses: Pt. PMHx includes the follows: ankle fx 3 locations 2006, ORIF 2006, Ankle ORIF removed 2008, aneurysms 2007 with clipping, stent and three coils on L hemisphere due to aneurysm, h/o smoking and has quit. Currently she is appealing [employer] security to get disability. She noted she has been fighting disability since 2009. - Symptoms Symptoms: Lorraine's main symptoms are severe headaches due to aneurysm's and stent surgery. She noted some decreased STM. - Pain Pain: Pt. notes that pain 2/10 generalized t/o body at L shoulder, cervical spine, and L yoselyn. Pain increased to 3-4/10 pain. - Work History Work History: Pt. has been unemployed since 2009. She notes she was previously on light duty for 3 years. She worked for [employer] for 1x month in [place], [place] prior to fx of L ankle. [employer] let her go in 2009 according to Pt. due to not being able to accomodate light duty. 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 - Behavioral Behavioral: Lorraine was pleasant and cooperative. She was willing to attempt all tasks and appeared to give best effort when completing tasks. - ADLS ADLS: [place] 5 steps to enter with handrail 1x side. Once in trailor everything is FFSU. She noted family brings food over for her and she mircrowaves meals. She is still driving and notes that family will take grocery shopping when hadaches are bad. She noted botox injections every 3 months has limited headaches from daily to 2x weekly. She notes that daughter , sister, and two brothers come over daily-weekly to help and call daily to check up on her. She notes she has someone else around when showering due to recent syncope episode. She is (I) with ADls and some IADls. She doesn't has grab bars but does have seat in shower. No pets to care for. - Physical Examination Physical Examination: Lorraine is 51 y/o who arrived for FCE on this date. She presented with ROM and strength WFL. She exhibits decreased endurance, balance, and ability to complete lifting of loaded tasks. She appears to have increased LOB with increased vestibular input and moving to different planes of with head. Lorraine noted she has recieved PT services for vestibular functioning, balance, and back pain over the last few years. She noted that she often becomes lightheaded when bending forward or changing positions which has been a result of aneurysms and shent being placed. Further details of performance can be observed in following sections. Due to increased LOB with bending and other repetitive movements tasks as well as physical performance with lifting she scored within the sedentary work area. MoCA screen completed and she scored a 26 which is normal. However, for language and STM some increased difficulty noted. May be benefical for additional cogitive testing. Based on performance she should not complete more than sedentary work at this time. ROM: B UE: WFL with some pain with ER of shoulder in low back. B UE: WFL. Strength: B UE. deltoids: R 4-/5, L 4-/5. biceps: R 4/5, L 4/5. triceps: R 4/5, L 4/5. wrist extension: R 4-/5, L 4-/5. B LE: hip flexors: R 4/5, L 4/5. quadracepts: R 4/5, L 4/5. hamstrings: R 4/5, L 4/5. hip adductors: R 4/5, L 4/5. hip abductors: R 4/5, L 4/5. dorsiflexion: R 4/5, L 4/5. plantar flexion: R 4/5, L 4/5 Right Security Incident Handler Strength Average: 39.66 Right Security Incident Handler Strength Percentile: 64th Left Security Incident Handler Strength Average: 43.00 Left Security Incident Handler Strength Percentile: 67th Right Lateral Pinch Average: 14.66 Right Lateral Pinch Percentile: 75th Left Lateral Pinch Average: 11.33 Left Lateral Pinch Percentile: 50th Right Tripod Pinch Average: 14.33 Right Tripod Pinch Percentile: 75th Left Tripod Pinch Average: 13.66 Left Tripod Pinch Percentile: 75th Sensation: Pt. denies numbness and tingling B UE. She notes she does has increased pain and numbess in R LE. She noted increased frequency of burning hands when cooking so tried to limited cooking. Monofilament test completed. Results are as follows: R 2nd 3.22 3rd 3.22 4th 3.61 5th 3.22 thumb 3.61 ;L 2nd 3.22 3rd 3.22 4th 3.61 5th 3.22 thumb 3.22. Fine Motor: Pt. FMC is decreased speed but intact and WFL. Completed 9 hole pegboard test R 24.62 s(25th percentile), L 20.38 s (75th percentile). Balance: Balance is fair at this time. She has increased instability on B sides. Needs exertnal supprot fo desk to complete tasks. Ehibits both anterior and posterior as well as latral LObw ith fx movements. Balance is WFL but descepancies with increased movement of head. - Non Material Handling Activities Bendinx, 5x , seated break due to lightheadedness and increased loss of balance both anteriorly and posteriorly. Needed to use external support of desk to promote stability. Therapists SBA for safety purposes. Educated to complete tasks as tolerated. Pain 2/10. Lightheadedness and consistent anterior and posterior loss of balance are limiting factors at this time. Squattinx, 10x with external support of desk, seated break, unable to complete last set of 10 fast. Therapists SBA for safety purposes. Educated to complete tasks as tolerated. Pt. noted pain increased to 3/10 over hip. Needed external support of desk due to increased LOB with tasks and need for stability. Increased SOB, fair body mechanics, and need for seated break prior to continuing. Decreased LOB and increased lightheadedness limiting at this time. Kneelinx, pain increased to 5/10 pain when kneeling and sibsiding moving upright, completed 3x and ended with needed seated break. Fair body mechnics with increased lateral lean to L side with use of extenral support of desk. Increased crepitus of R knee when completing task. Pain increased to 5/10 pain mid kneel and then subsided when returning to upright. Pain limiting factor for this activity. Reaching out/up: from standing position: Reaching out: 3x, 10x, 10 fast. Good body mechanics, no LOB, some SOB. Reaching up: 3x, 10x, 10 fast. Good body mechanics, no LOB, some SOB. Walking: Completed 15 mins of walking with 6 breaks 2 sitting and 4 standing t/o session. First break at 3 mins 30 seconds. Exhibiting antalgic gait and increased lateral LOB to both R and L. Standin mins with compensations noted of lateral leaning and weightshifts as needed to management pain. Sittin-40 mins. Completed with needed weight shifts as needed. Climbing Stairs: Able to complete 10 stairs at own pace with alernating foot pattern and use fo B handrails. WFL. - Dynamic Occasional Lifting Capacity Floor Lift: 10 lbs. Pain between 3-4/10 pain. Poor body mechanics of narrow BENNY and increased trunk flexion placing increased strain on thoracic and lumbar areas. Balance WFL. Knee Lift: 10 lbs. Pain between 3-4/10 pain. Poor body mechanics of narrow BENNY and increased trunk flexion placing increased strain on thoracic and lumbar areas. Balance WFL. Waist Lift: 10 lbs. Pain between 3-4/10 pain. Body mechanics fair at this time. Some twisting of lower lumbar to manipulate to designated location Shoulder Lift: 10 lbs. Pain between 3-4/10 pain. Body mechanics poor. Increased compensatiosna noted through increased holding of breath, increased trunk extension, increased cervical flexion, and moving to toes to manipulate box. Overhead Lift: 10 lbs. Pain between 3-4/10 pain. Carryin lbs. Pain between 3-4/10 pain. Comments: Completed MoCA screen for cognitive performance. She may benefit from further cognitive testing. She scored 26/30. Which is scores as normal normal but on borderline of normal and mild cognitive deficits. She appears to have some STM deficits (still WFL) which is is already aware of as well and some repeated language deficits. Notes no previous langauge deficits prior to aneursyms. <Electronically signed by Betsy Willson > 08/13/17 1146 CC: Nayla Kim MD; Johann Guy MD KMMinerva Signed For Medicare only, by signing this I certify the plan of care. Physicians Signature Date ALLERGIES ALLERGIES DATE TYPE / CODE NAME / CODE REACTION SEVERITY SOURCE 06/07/2018 Drug No Known Unknown Kavita [facility] Allergy/4160 Allergies/F00 Hospital 77914(SNOMED [id number](RXNOR Repository CT) M) ENCOUNTERS ENCOUNTERS ADMIT/DISCHARGE ACCOUNT ADMITTING ENCOUNTER LOCATION SOURCE NUMBER CLASS 06/11/2018/ [id number] Ambulatory [place] Kavita 9 7 [facility] ing:SDCRoom: Repository AC18 05/27/2018/ [id number] Ambulatory Kavita Kavita 9 8 [facility] ing:PT Repository 02/12/2018 [id number] Ambulatory Kavita Kavita 8 [facility] ing:CT Repository 12/18/2017/ [id number] Ambulatory Kavita Kavita 8 3 [facility] ing:SDCRoom: Repository AC02 11/11/2017 [id number] Ambulatory Kavita Kavita 4 [facility] ing:ADELA Repository E 08/10/2017/ [id number] Ambulatory [place] 8 3 [facility] ing:OT Repository PAYERS PAYERS ENCOUNTER GUARANTOR PAYER SUBSCRIBER SOURCE 06/11/2018 LORRAINE Matos Primary LORRAINE [id number] Insurance:[facility] DAR[facility] [place]: [id number] [id number] Repository [address]Sht: ([phone]) Date:2018-05-31P O [phone] () [address]ATTN: [place] [address]LK: 06/11/2018 Secondary NOT GIVENUNK Kavita Insurance:SELF PAY [facility] Number: Effective Repository Date:2018-05-31 05/27/2018 LORRAINE L Primary LORRAINE L [place] [id number] Insurance:CARESOURCEP MINYARDDOB: [facility] Number: [id number], [place] [id number] Repository [address]Ngo: ([phone]) Date:2017-04-24P O [phone] () [address]ATTN: [place] [address]JX: 05/27/2018 Secondary NOT GIVENUNK Kavita Insurance:SELF PAY [facility] Number: Effective Repository Date:2018-03-15 02/12/2018 LORRAINE L Primary LORRAINE L Kavita [id number] Insurance:CARESOURCEP MINYARDDOB: [facility] Number: [id number], [place] [id number] Repository [address]Plv: ([phone]) Date:2018-02-09P O [phone] () [address]ATTN: [place] [address]FE: 02/12/2018 Secondary NOT GIVENUNK [place] Insurance:SELF PAY [facility] Number: Effective Repository Date:2018-02-09 12/18/2017 LORRAINE L Primary LORRAINE L Kavita [id number] Insurance:CARESOURCEP MINYARDDOB: [facility] Number: [id number] [id number] Repository [address]Stv: ([phone]) Date:2017-11-27P O [phone] () [address]ATTN: [place] [address]IN: 12/18/2017 Secondary NOT GIVENUNK Kavita Insurance:SELF PAY [facility] Number: Effective Repository Date:2017-11-27 11/11/2017 LORRAINE L Primary LORRAINE L Kavita [id number] Insurance:CARESOURCEP MINYARDDOB: [facility] dario Number: [id number] [id number] Repository [address]Ute: (330) Date:2017-10-02P O [phone] () [address]ATTN: [place] [address]NO: 11/11/2017 Secondary NOT GIVENUNK Kavita Insurance:SELF PAY [facility] Number: Effective Repository Date:2017-10-02 08/10/2017 Lorraine L Primary Lorraine L Kavita [id number] Insurance:CARESOURCEP [facility] Number: [id number] [id number] Repository [address]Pes: ([phone]) Date:2017-04-24P O [phone] () [address]ATTN: [place] [address]BB: 08/10/2017 Secondary NOT GIVENUNK [place] Insurance:SELF PAY [facility] Number: Effective Repository Date:2017-07-30
== END 2018-06-11 13:14 | disposition home or self-care (01) ==
LOC: SDC 10:42 → AC 10:44
PROVIDERS: Family Provider Family Medicine; PCP Family Medicine; Referring Provider Anesthesiology Pain Medicine; Visit Provider Anesthesiology Pain Medicine
PROC: 3E0S3BZ Introduction of Anesthetic Agent into Epidural Space, Percutaneous Approach (ICD-10-PCS; principal; 2018-06-11 11:45)
DX: M54.14 Radiculopathy, thoracic region (principal); Z87.891 Personal history of nicotine dependence
CPT/HCPCS: 01922; 62321; 64490; 72020; J7120

== ENCOUNTER → 2018-06-29 11:08 | Outpatient (CLI) | payer MEDICAID, SELFPAY ==
[2018-06-11 11:10] VITALS: BMI 25.9
--- NOTE | 2018-06-29 11:12 | RAD_ITS ---
STUDY: X-RAY - LUMBAR SPINE REASON FOR EXAM: Female, 52 years old. Chronic low back pain. TECHNIQUE: 3 view(s) of the lumbar spine were obtained. COMPARISON: None FINDINGS: Normal lumbar lordosis. There is a mild dextroscoliosis of the lumbar spine. There is a normal alignment of the vertebrae. Normal vertebral bodies and endplates. Normal disc space heights. There is atherosclerotic calcification of the abdominal aorta without a demonstrated aneurysm. RAD/Lumbar Spine 2 or 3 Views IMPRESSION: Mild dextroscoliosis. Electronically Signed: Julio Boyce MD at 11:26 EST , Service support ,
== END ==
PROVIDERS: Family Provider Family Medicine; PCP Family Medicine; Referring Provider Anesthesiology Pain Medicine; Visit Provider Anesthesiology Pain Medicine
DX: M41.86 Other forms of scoliosis, lumbar region (principal)
CPT/HCPCS: 72100

== ENCOUNTER → 2018-07-30 10:11 | Outpatient (CLI) | payer MEDICAID, SELFPAY ==
--- NOTE | 2018-07-30 10:28 | RAD_ITS ---
STUDY: X-RAY - THORACIC SPINE REASON FOR EXAM: Female, 52 years old. Back pain. TECHNIQUE: 2 view(s) of the thoracic spine were obtained. COMPARISON: None. FINDINGS: Normal kyphosis of the thoracic spine. There is no substantial scoliosis. There is multilevel endplate spondylosis of the thoracic vertebrae. There is multilevel disc space narrowing of the thoracic spine. There is no evidence of acute fracture or loss of vertebral axial height. The soft tissue structures are unremarkable. RAD/Thoracic Spine 2 Views IMPRESSION: Mild degenerative changes of the thoracic spine. Electronically Signed: Davy Dalal DO at 21:55 EST Tel [phone], Service support ,
== END ==
PROVIDERS: Family Provider Family Medicine; PCP Family Medicine; Referring Provider Anesthesiology Pain Medicine; Visit Provider Anesthesiology Pain Medicine
DX: M54.6 Pain in thoracic spine (principal)
CPT/HCPCS: 72070

== ENCOUNTER → 2019-12-06 16:06 | Outpatient (CLI) | payer MEDICAID, SELFPAY ==
--- NOTE | 2019-12-06 16:15 | RAD_ITS ---
STUDY: X-RAY - LUMBAR SPINE REASON FOR EXAM: Female, 53 years old. Lower back pain. TECHNIQUE: 3 view(s) of the lumbar spine were obtained. COMPARISON: Lumbar spine, June 29, 2018. FINDINGS: Normal lumbar lordosis. There is a minimal dextroscoliosis with convexity at T12. There is a normal alignment of the vertebrae. Normal vertebral bodies and endplates. There is multi-level degenerative disc disease with multi-level disc space narrowing. There is no evidence of acute fracture or loss of vertebral axial height. There is atherosclerotic calcification of the abdominal aorta without a demonstrated aneurysm. RAD/Lumbar Spine 2 or 3 Views IMPRESSION: Stable findings. There is no acute fracture or subluxation. Electronically Signed: Davy Dalal DO at 23:42 EDT Tel [phone], Service support ,
== END ==
PROVIDERS: PCP Family Medicine; Referring Provider Anesthesiology Pain Medicine; Visit Provider Anesthesiology Pain Medicine
DX: M54.5 Low back pain (principal)
CPT/HCPCS: 72100

== ENCOUNTER → 2020-11-06 15:32 | Outpatient (CLI) | payer MEDICAID, SELFPAY ==
--- NOTE | 2020-11-06 15:58 | RAD_ITS ---
STUDY: X-RAY - CERVICAL SPINE REASON FOR EXAM: Female, 54 years old. CERVICALGIA OF OCCIPITO [place] AXIAL REGION TECHNIQUE: 7 view(s) of the cervical spine were obtained including flexion and extension. COMPARISON: None FINDINGS: Normal anterior atlantoaxial articulation. Normal odontoid process. Normal cervical lordosis. No acute fracture or subluxation. Narrowed disc spaces at C5-6 and C6-7 with endplate spurring.. Mild multilevel neuroforaminal encroachment secondary to bony hypertrophy Limited range of motion in flexion and extension without evidence for gross instability Surgical clip is seen in the right pretracheal t soft tissues. RAD/Cerv Spine Obl/Flex/Ext Comp IMPRESSION: Mild spondylosis. No acute fracture or subluxation Electronically Signed: Avery Wood MD at 16:24 EDT , Service support ,
== END ==
PROVIDERS: PCP Family Medicine; Referring Provider Psychiatry & Neurology Neurology; Visit Provider Psychiatry & Neurology Neurology
DX: M54.2 Cervicalgia (principal)
CPT/HCPCS: 72050; 72052

== ENCOUNTER 2021-01-04 12:59 | Observation (INO) | payer MEDICAID, SELFPAY ==
[2021-01-04] VITALS (9 sets, daily range): BP systolic 124–147; BP diastolic 77–104; PULSE 67–104; RESP 14–18; TEMP 36.1–36.7; O2SAT 97–100; BMI 33.2; BMI 32.1
--- NOTE | 2021-01-04 13:24 | EKG12_ITS ---
Test Reason : NEURO S/SX Blood Pressure : / mmHG Vent. Rate : 069 BPM Atrial Rate : 069 BPM P-R Int : 180 ms QRS Dur : 094 ms QT Int : 382 ms P-R-T Axes : 047 037 062 degrees QTc Int : 409 ms Normal sinus rhythm Normal ECG Confirmed by ROGER KAPLAN, IVY ([id number]), dictionary editor MATA PEREZ ([id number]) on 01/08/2021 9:11:18 AM Referred By: MARY ELLEN Confirmed By:IVY DURAN MD
--- NOTE | 2021-01-04 13:24 | CT_ITS ---
STUDY: CTA HEAD AND NECK WITH CONTRAST REASON FOR EXAM: Female, 55 years old. Eyelid droop, hx of aneurysm s/p coils RADIATION DOSAGE (If Supplied By Facility): CTDIvol = ( 27.96 ) mGy, DLP = ( 1449.02 ) mGycm TECHNIQUE: CT angiography was performed with a multi-detector CT scanner. Data acquisition was obtained from the skull base through the vertex following intravenous administration of IV 100mL Isovue-370. MIP images were reconstructed from the axial data set. Post-processing of the angiographic images was performed, with multiplanar reformation and 3D reconstruction. Individualized dose optimization techniques were used for this CT. COMPARISON: Comparison is made with prior study 01/07/2013. FINDINGS: Normal bilateral petrous carotid arteries. Normal right cavernous carotid artery with a normal supraclinoid bifurcation. Normal left cavernous carotid artery with a normal supraclinoid bifurcation. Normal right A1 segments of the anterior cerebral artery. Normal left A1 segments of the anterior cerebral artery. Normal intact anterior communicating artery (ACOM). Normal bilateral A2 segments of the anterior cerebral arteries. Normal right M1 and M2 segments of the middle cerebral arteries, with a normal M1 bifurcation. Normal left M1 and M2 segments of the middle cerebral arteries, with a normal M1 bifurcation. Normal right posterior communicating artery (PCOM). Normal left posterior communicating artery (PCOM). Normal bilateral vertebral arteries. Normal basilar artery with a normal basilar bifurcation. The visualized bilateral superior cerebellar (SCA) arteries are normal. Normal bilateral P1, P2 and visualized P3 segments of the posterior cerebral arteries. There is no demonstrated aneurysm of the nulato of Jain. Metallic artifact most likely due to embolization coil seen in the left PICA. Metallic artifact and the aneurysmal coiling seen in the region of the top of the right internal carotid artery and right cavernous portion. There is evidence of prior right frontal temporal craniotomy. AORTIC ARCH: There is atherosclerotic calcific plaque formation of the aortic arch and great vessels arising from the aortic arch, without a hemodynamically significant stenosis. There is a normal origin of the brachiocephalic, left common carotid, and left subclavian arteries. RIGHT CAROTID ARTERIES: Normal right common carotid artery (CCA). Normal right common carotid bulb. Normal origin of the right internal carotid (ICA) artery without a hemodynamically significant stenosis. Normal visualized cervical portion of the right internal carotid artery. Normal origin of the right external carotid artery (ECA). LEFT CAROTID ARTERIES: Normal left common carotid artery (CCA). Normal left common carotid bulb. Normal origin of the left internal carotid (ICA) artery without a hemodynamically significant stenosis. Normal visualized cervical portion of the left internal carotid artery. Normal origin of the left external carotid artery (ECA). VERTEBRAL ARTERIES: There is enhancement within the bilateral vertebral arteries with a small right vertebral artery, and a dominant left vertebral artery. The distal portion of the right vertebral artery is opacified via the left side. There is a 3 mm filling defect in the distal portion of the right vertebral artery. CT/CTA Head AND Neck W/ Contrast IMPRESSION: Prior aneurysmal clipping at the origin of the left PICA and superior aspect of the proximal right supraclinoid right internal carotid artery. Tiny rounded filling defect in the distal portion of the right vertebral artery as seen on axial image #368 . N.B. : The above Results were Read Back by Julio Boyce MD to ADRIENNE HYDE and understanding confirmed on 01/04/2021 15:21:00 (ET). Electronically Signed: Julio Boyce MD at 15:22 EDT , Service support ,
--- NOTE | 2021-01-04 13:43 | ED.RN ---
this rn went in to start iv and get bloodwork on pt. upon entering pt questioned why we would need this done. she realized she would have to be here longer than an hour to wait on all results and said she doesn't have time to stay and wants to leave. this RN informed Dr June and he said he would go talk to pt. pt updated and willing to wait in room to talk to
--- NOTE | 2021-01-04 14:13 | EDS_ITS ---
HPI <Dr. Manjit June DO - Last Filed: 01/05/21 06:57> History of Present Illness Chief Complaint: Eye Problem Informant: patient Narrative Narrative: Patient is a 55-year-old female who presents to the emergency department for right eyelid droop. She was seen by the mechanics handyman today who called her neurologist. They recommended the patient get a CT scan and CT angiogram. She does have a history of brain aneurysm status post coiling. 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 This was all done back in 2008. The eye droop has been present over the past 3 days. She does not think it is an aneurysm this time because she does not have any headache which she did last time. She denies any vision change otherwise. No issues with word finding. No weakness or loss of sensation in any extremity. She has not had any chest pain, shortness of breath or heart palpitations. [facility] <Dr. Manjit June DO - Last Filed: 01/05/21 06:57> [facility] Medical History (Updated 01/04/21 @ 16:45 by Genny Quezada NP, CERTIFIED ORTHOTIC FITTER-C) Depression History of aneurysm Migraine Home Medications amitriptyline 25 mg PO QHS 01/04/21 [History Last Taken 01/03/21] amitriptyline 100 mg PO QHS 01/04/21 [History Last Taken 01/03/21] fremanezumab-vfrm [Ajovy Autoinjector] 225 mg SUBCUT QMONTH 01/04/21 [History Last Taken 12/10/20] ubrogepant [Ubrelvy] 100 mg PO DAILY PRN PRN 01/04/21 [History Last Taken 1 Month Ago ~12/04/20] Allergy/AdvReac Type Severity Reaction Status Date / Time No Known Allergies Allergy Verified 01/04/21 13:00 Family History (Updated 01/04/21 @ 16:43 by Genny Quezada NP, CERTIFIED ORTHOTIC FITTER-C) Father , related to drowning accident No problems noted. Mother TIA (transient ischemic attack) Hypertension Surgical History (Updated 01/04/21 @ 16:45 by Genny Quezada NP, CERTIFIED ORTHOTIC FITTER-C) Brain aneurysm H/O partial thyroidectomy History of ankle surgery Hx of cholecystectomy Social History (Updated 01/04/21 @ 16:46 by Genny Quezada NP, CERTIFIED ORTHOTIC FITTER-C) household members: none Smoking Status: Former smoker alcohol intake: never substance use type: does not use ROS <Dr. Manjit June DO - Last Filed: 01/05/21 06:57> ROS ED Constitutional Constitutional ED: Denies chills or fever(s) Eyes Eyes: Denies change in vision ENT ENT ED: Denies epistaxis or rhinorrhea Cardiovascular Cardiovascular: Denies chest pain or palpitations Respiratory/Chest Respiratory/Chest: Denies cough, dyspnea or dyspnea on exertion Gastrointestinal Gastrointestinal: Denies abdominal pain, diarrhea, nausea or vomiting Genitourinary Genitourinary ED: Denies dysuria, hematuria or urinary frequency Musculoskeletal Musculoskeletal: Denies back pain or neck pain Integumentary Denies rash Neurologic Neurologic: Denies dizziness, headache(s) or weakness EXAM <Dr. Manjit June, DO - Last Filed: 01/05/21 06:57> Physical Exam Const Vital Signs: 01/04/21 13:01 Temperature 96.9 F L Temperature Source Temporal Pulse Rate 104 H Respiratory Rate 18 Blood Pressure 143/104 H Blood Pressure Mean 117 Pulse Ox 98 Oxygen Delivery Method Room Air Positive well nourished and well developed General Appearance ED: well developed and NAD HEENT Reports normocephalic, head/scalp atraumatic and moist mucous membranes Eyes EOMs intact bilaterally Eyes Narrative: There is droop to right upper eyelid. Sensation of face intact, no other facial weakness aprecciated. Pupils previously dilated by outside mechanics handyman. Neck supple Chest Wall inspection of chest normal Resp normal respiratory effort and clear to auscultation bilaterally Auscultation: Negative for rales, rhonchi or wheezes Cardio regular rate, regular rhythm and no murmurs GI normal to inspection, nondistended, normoactive bowel sounds and non-tender Palpation: soft; Negative for guarding or rebound tenderness present Extremity normal to inspection General Extremety ED: Negative for edema or tenderness General Extremity: Negative for edema Neuro oriented x3 and no sensory deficits noted Neuro Narrative: No focal deficits except for eyelid drooping on the right side. Sensorium / Orientation: alert Motor Exam: strength 5/5 throughout Psych mental status grossly normal Skin no rashes or lesions noted MDM <Dr. Manjit June DO - Last Filed: 01/05/21 06:57> [facility] MDM Narrative Medical decision making narrative: Patient presents to the emergency department for right eyelid drooping. She was referred in by her mechanics handyman as well as her neurologist. They requested a CT scan to evaluate for repeat aneurysm. On arrival patient is agitated that she has to wait for this to be done and wanted to leave. I did have a conversation with the patient now she is agreeable. Will check basic lab work and CT imaging. If CT angios are negative the neurologist states that he will follow up with her as an outpatient on Thursday morning. Patient's CT scan showed a filling defect of the right vertebral artery. A page has been placed to [facility] vascular surgery. Patient otherwise has remained stable throughout ED stay. She is signed out due to end of shift. Current disposition based on vascular recommendations. EKG Initial EKG: Attestation: I personally reviewed and interpreted this EKG as follows: (Rate of 69 bpm normal sinus rhythm. Normal intervals. Normal axis. No significant ST elevations or depressions. No T wave abnormalities.) <Dr. Debbie Cabrales MD - Last Filed: 01/04/21 16:05> [facility] Treatment and Re-Evaluation Comments:: Patient signed out to me pending return call from [facility]. CTA did reveal a small filling defect in the distal right vertebral. I spoke with Dr. Layne, vascular at [facility]. He stated that his concern would be for a small midbrain stroke. Patient needs MRi with contrast and treated with antiplatelet such as baby aspirin. He stated that if the patient could be treated here that would be okay and he is happy to be called with any questions or concerns. I spoke with hospitalist and patient will be admitted here for MRI. Discharge Plan Dx/Rx/DC Orders Clinical Impression: Drooping eyelid Disposition Disposition: Acute Care Hospital [facility] Discharge Date/Time: 01/04/21 17:13
[2021-01-04 14:34] LABS: Absolute Lymphocyte Count 3.74 X10^3/uL (0.83-4.51); Absolute Neutrophil Count 5.8 X10^3/uL (2.0-7.7); Basophil# 0.08 X10^3/uL; Basophil% 0.7 % (0-1); Eosinophil# 0.59 X10^3/uL; Eosinophils% 5.3 % (0-5); Hematocrit 43.2 % (37-47); Lymphocyte # 3.74 X10^3/ul (0.83-4.51); Lymphocyte % 33.7 % (19-41); Mean Corp Hgb Conc 32.4 g/dL (32-36); Mean Corpuscular Hgb 28.3 pg (27.0-32.0); Mean Corpuscular Volume 87.4 fL (81-99); Mean Platelet Vol. 10.7 fl (6.2-12.0); Monocyte# 0.86 X10^3/uL; Monocyte% 7.8 % (0-10); NRBC Flagged by Analyzer 0 % (0-5); Neutrophil # 5.78 X10^3/uL (2.7-7.7); Neutrophil % 52.1 % (47-70); POSITIVE MORPHOLOGY YES; Platelet Count 520 K/mm3 (150-450); RBC Distribution Width CV 17.3 % (11.6-14.6); RBC Distribution Width SD 55.1 fl (35.1-43.9); Red Blood Count 4.94 M/mm3 (4.2-5.4); White Blood Count 11.1 K/mm3 (4.4-11.0)
[2021-01-04 14:38] LABS: Differential Indicated SCAN CRITERIA MET
[2021-01-04 14:46] LABS: Anion Gap 4 (5-15); BUN 10 mg/dL (7-18); BUN/Creat Ratio 9.7 RATIO (10-20); Calcium,Total 8.9 mg/dL (8.5-10.1); Chloride 103 mmol/L (98-107); Creatinine, Serum 1.03 mg/dL (0.55-1.02); EST Glomerular Filtration Rate 59 mL/min (>60); Est Glom Filt Rate - Afr Amer 71 mL/min (>60); Estimated Creatinine Clearance 43.29 ml/min; Glucose 82 mg/dL (74-106); Potassium 4.1 mmol/L (3.5-5.1); Sodium Level 137 mmol/L (136-145)
[2021-01-04 15:20] LABS: Platelet Estimate ADEQUATE (ADEQ); Reactive Lymphocyte 1+; Red Cell Morphology NORM C+C NORMAL (NORM C&C)
[2021-01-04] MEDS: Aspirin 81 MG TAB.CHEW PO (16:32)
--- NOTE | 2021-01-04 16:35 | HP.PCM.HOS_ITS ---
Documented by User: Genny Quezada NP, [employer] 01/04/21 17:04 HPI - General General Date of Admission: 01/04/21 Date of Service: 01/04/21 Chief Complaint: Right eyelid drooping. HPI Narrative JAVIER SAL, is a 55 F who presents to the emergency room due to right eyelid drooping. Patient states this has been ongoing for 3 days. She saw her theoretical physics teacher today and reports her eye exam was normal with the exception of right eye ptosis. She states her theoretical physics teacher spoke with her neurologist, Dr. Polo who suggested patient come to the emergency room for evaluation. She reports a history of brain aneurysm status post coiling in 2008. She states she had complete closing of right eye at that time which improved over 4 to 6 months. She denies vision changes, speech changes. Denies numbness, tingling, unilateral weakness or focal deficits. She does state a few days ago she had a burning sensation surrounding her right eye and noticed some redness. Her daughter at bedside also states she is noted redness and mild rash around her right upper and lower eyelid. Patient states burning has resolved and she denies further symptoms related to this. Patient feels like her right eyelid ptosis is improving. She has a past medical history of brain aneurysm status post coiling, migraine headaches, status post partial thyroidectomy due to thyroid nodule, depression. [facility]LY [facility] Medical History (Updated 01/04/21 @ 16:45 by Genny Quezada NP, [employer]) Depression History of aneurysm Migraine Home Medications amitriptyline 25 mg PO QHS 01/04/21 [History Last Taken 01/03/21] amitriptyline 100 mg PO QHS 01/04/21 [History Last Taken 01/03/21] fremanezumab-vfrm [Ajovy Autoinjector] 225 mg SUBCUT QMONTH 01/04/21 [History Last Taken 12/10/20] ubrogepant [Ubrelvy] 100 mg PO DAILY PRN PRN 01/04/21 [History Last Taken 1 Month Ago ~12/04/20] Allergy/AdvReac Type Severity Reaction Status Date / Time No Known Allergies Allergy Verified 01/04/21 13:00 Family History (Updated 01/04/21 @ 16:43 by Genny Quezada NP, [employer]) Father , related to drowning accident No problems noted. Mother TIA (transient ischemic attack) Hypertension Surgical History (Updated 01/04/21 @ 16:45 by Genny Quezada [employer], [employer]) Brain aneurysm H/O partial thyroidectomy History of ankle surgery Hx of cholecystectomy Social History (Updated 01/04/21 @ 16:46 by eGnny Quezada NP, [employer]) household members: none Smoking Status: Former smoker alcohol intake: never substance use type: does not use ROS Constitutional Constitutional: Denies change in weight, chills, fatigue, fever(s) or weakness Eyes Eyes: Reports other Details: right eyelid drooping, surrounding erythema Cardiovascular Cardiovascular: Denies chest pain, edema, lightheadedness, palpitations or syncope Respiratory/Chest Respiratory/Chest: Denies cough, dyspnea, productive cough, shortness of breath at rest, shortness of breath with exertion or wheezing Gastrointestinal Gastrointestinal: Denies abdominal pain, constipation, diarrhea, nausea or vomiting Genitourinary Genitourinary: Denies burning urination, difficulty urinating, dysuria, hematuria, urinary frequency, urinary incontinence or urinary urgency Musculoskeletal Musculoskeletal: Denies back pain, joint pain or muscle weakness Integumentary Integumentary: Denies erythema, lesions, rash or wounds Neurologic Neurologic: Denies abnormal speech, confusion, dizziness, focal weakness, numbness, paresthesias, seizure-like activity or syncope Psychiatric Psychiatric: Denies anxiety or depression Hematologic/Lymphatic Hematologic/Lymphatic: Denies anemia, easy bleeding or easy bruising Allergic/Immunologic Allergic/Immunologic: Denies hives or asthma Vital Signs Vital Signs Vital Signs: 01/04/21 13:01 01/04/21 14:17 01/04/21 15:57 Temperature 96.9 F L Temperature Source Temporal Pulse Rate 104 H 81 73 Respiratory Rate 18 14 16 Blood Pressure 143/104 H 130/94 H 138/96 H Blood Pressure Mean 117 106 110 Pulse Ox 98 97 Oxygen Delivery Method Room Air Room Air Weight Weight: 170 lb Body Mass Index (BMI) 33.2 Physical Exam Const alert, oriented x3 and no apparent distress Orientation / Consciousness: awake, oriented to person, oriented to place and oriented to time HEENT normocephalic and moist oral mucous membranes Eyes PERRL, EOMs intact bilaterally and conjunctivae normal Eyes Narrative: Mild right eye ptosis. Mild upper and lower lid erythema with raised rash. Neck no lymphadenopathy Resp normal respiratory effort and clear to auscultation bilaterally Cardio regular rate, regular rhythm and no murmurs Peripheral Pulses: pulses 2+ throughout GI normal to inspection, nondistended, normoactive bowel sounds, non-tender and non-distended Extremity normal to inspection Skin no rashes or lesions noted Lesions: no lesions Rashes: no rashes Trauma: no lacerations or abrasions Neuro CN's II-XII intact bilaterally, no focal motor deficits, no sensory deficits noted and deep tendon reflexes 2+ bilaterally Psych mental status grossly normal and affect normal Results Lab / Micro Data Result Diagrams: 01/04/21 14:14 01/04/21 14:14 Labs: Laboratory Results - last 24 hr 01/04/21 14:14: WBC 11.1 H, RBC 4.94, Hgb 14.0, Hct 43.2, MCV 87.4, MCH 28.3, MCHC 32.4, RDW Std Deviation 55.1 H, RDW Coeff of Leonardo 17.3 H, Plt Count 520 H, MPV 10.7, Immature Gran % (Auto) 0.400, Neut % (Auto) 52.1, Lymph % (Auto) 33.7, [place] % (Auto) 7.8, Eos % (Auto) 5.3 H, Baso % (Auto) 0.7, Absolute Neuts (auto) 5.8, Absolute Lymphs (auto) 3.74, Nucleated RBC % 0, Reactive Lymphocytes 1+, Platelet Estimate ADEQUATE, RBC Morphology NORM C+C 01/04/21 14:14: Sodium 137, Potassium 4.1, Chloride 103, Carbon Dioxide 30.0, Anion Gap 4 L, BUN 10, Creatinine 1.03 H, Estim Creat Clear Calc 43.29, Est GFR (MDRD) Af Amer 71, Est GFR (MDRD) Non-Af 59 L, BUN/Creatinine Ratio 9.7 L, Glucose 82, Calcium 8.9 Radiology Impression Head/Neck CTA 01/04/21 13:24 IMPRESSION: Prior aneurysmal clipping at the origin of the left PICA and superior aspect of the proximal right supraclinoid right internal carotid artery. Tiny rounded filling defect in the distal portion of the right vertebral artery as seen on axial image #368 . N.B. : The above Results were Read Back by Julio Boyce MD to ADRIENNE HYDE and understanding confirmed on 01/04/2021 15:21:00 (ET). Electronically Signed: Julio Boyce MD at 15:22 EDT , Service support , ADDENDUM: 01/04/21 1529 IMPRESSION: Prior aneurysmal clipping at the origin of the left PICA and superior aspect of the proximal right supraclinoid right internal carotid artery. Tiny rounded filling defect in the distal portion of the right vertebral artery as seen on axial image #368 . N.B. : The above Results were Read Back by Julio Boyce MD to ADRIENNE HYDE and understanding confirmed on 01/04/2021 15:21:00 (ET). Electronically Signed: Julio Boyce MD at 15:22 EDT , Service support , Assessment & Plan Assessment/Plan (1) Drooping eyelid: PLAN: 1. Right eye ptosis, rule out CVA-cleared by ophthalmology. Underwent CTA of head and neck which showed prior aneurysmal clipping at the origin of the left PICA and superior aspect of the proximal right supraclinoid right internal carotid artery. Tiny rounding filling defect in the distal portion of the right vertebral artery. ED spoke with [facility] neurology who did not indicate a need for transfer. Neurology recommended MRI with and without contrast and antiplatelet for further evaluation. Of note, patient does have upper and lower eyelid erythematous rash which may be contributing to ptosis. 2. History of brain aneurysm status post coiling- follows with neurology, Dr. Polo. 3. Migraine headaches- on PRN ubrelvy, ajovy. 4. Status post partial thyroidectomy due to thyroid nodule- Check TSH. 5. Depression-on amitriptyline. DVT prophylaxis- Lovenox sc CODE STATUS: Full code This patient was seen by MARIELA Sabillon under the supervision of Dr. Moise. Documented by User: Dr. Rossi Moise MD 01/04/21 17:18 HPI - General General Date of Admission: 01/04/21 [facility] Medical History (Updated 01/04/21 @ 16:45 by Genny Quezada [employer], [employer]) Depression History of aneurysm Migraine Home Medications amitriptyline 25 mg PO QHS 01/04/21 [History Last Taken 01/03/21] amitriptyline 100 mg PO QHS 01/04/21 [History Last Taken 01/03/21] fremanezumab-vfrm [Ajovy Autoinjector] 225 mg SUBCUT QMONTH 01/04/21 [History Last Taken 12/10/20] ubrogepant [Ubrelvy] 100 mg PO DAILY PRN PRN 01/04/21 [History Last Taken 1 Month Ago ~12/04/20] Allergy/AdvReac Type Severity Reaction Status Date / Time No Known Allergies Allergy Verified 01/04/21 13:00 Family History (Updated 01/04/21 @ 16:43 by Genny Quezada [employer], [employer]) Father , related to drowning accident No problems noted. Mother TIA (transient ischemic attack) Hypertension Surgical History (Updated 01/04/21 @ 16:45 by Genny Quezada [employer], [employer]) Brain aneurysm H/O partial thyroidectomy History of ankle surgery Hx of cholecystectomy Social History (Updated 01/04/21 @ 16:46 by Genny Quezada [employer], [employer]) household members: none Smoking Status: Former smoker alcohol intake: never substance use type: does not use Results Lab / Micro Data Result Diagrams: 01/04/21 14:14 01/04/21 14:14 Charges/Coding Addendum Addendum: ATTENDING PHYSICIAN NOTE: I have seen and examined the patient independently and agree with the assessment , plan, history per Genny Quezada as noted. Chief Complaint: Right eyelid mild droop x 3 days. The patient is a 55 y/o F w/ PMHx: Depression and Anxiety, Migraines, Obesity, History of Brain aneurysm status post coiling 2008 who presents to the [facility] ED on 01/04/21 w/ history of ongoing mild right eyelid droop for the last 3 days with ophthalmology visit on day of ED presentation who discussed patient's presentation with her neurologist, Dr. Pelaez who adjusted ED visit secondary to history of prior brain aneurysm status post coiling 2008. Patient upon presentation does have nonpruritic rash primarily underneath the lower eyelids but on the right does have some on the upper right eyelid with no recent history of change to any detergents or cleaning agents, does not use any make-up or any lotions. Work-up in the ED included T 98, heart rate 76, BP 132/96, respiratory rate 16, 97% room air, CBC with WC 11.1, hemoglobin 14, platelet 520 without marked shift, BMP with BUN/creatinine 10/1.03 otherwise not marked appearing, CTA head and neck with evidence of prior aneurysmal clipping at the origin of the left Spika and superior aspect of the proximal right supraclinoid right internal carotid artery, tiny rounded filling defect in the distal portion of the right vertebral artery. ED physician did discuss case with Dr. Layne, vascular at [facility] who noted findings on imaging and history, concern would be for a small midbrain stroke with recommended MRI brain with contrast and treated with antiplatelet baby aspirin. He stated the patient did not require transfer for these findings and could remain at [facility] for evaluation and treatment. Labs, Allergies, Home medications, Social Hx, PSurgHx, Family Hx per note below. Admission Review of Systems: CONSTITUTIONAL: No weight loss, fever, chills, weakness or fatigue. HEENT: + R eye lid upper droop. Eyes: No visual loss, blurred vision, double vision or yellow sclerae. Ears, Nose, Throat: No hearing loss, sneezing, congestion, runny nose or sore throat. SKIN: + Mild BL elena-ophthalmic region rash. CARDIOVASCULAR: No chest pain, chest pressure or chest discomfort, palpitations, edema, orthopnea, syncopal events. RESPIRATORY: No shortness of breath, cough or sputum, wheezing, hemoptysis. GASTROINTESTINAL: No anorexia, nausea, vomiting or diarrhea, abdominal pain, melena, BRBPR. GENITOURINARY: No dysuria, frequency, urgency or retention. NEUROLOGICAL: No headache, dizziness, syncope, paralysis, ataxia, numbness or tingling in the extremities, focal weakness, change in bowel or bladder control, seizure. MUSCULOSKELETAL: No muscle, back pain, joint pain or stiffness. HEMATOLOGIC: No anemia, bleeding or bruising. LYMPHATICS: No enlarged nodes. No history of splenectomy. PSYCHIATRIC: No history of depression or anxiety. ENDOCRINOLOGIC: No reports of sweating, cold or heat intolerance. No polyuria or polydipsia. ALLERGIES: No history of asthma, hives, eczema or rhinitis. Admission VS: As noted below. Physical Examination: General: awake, alert, oriented x 3 and cooperative, seated upright in the ED bed in no apparent distress. Skin: normal color, turgor, no icterus, cyanosis except noted BL below lower eyelid flat, rash, blanching, also on R upper lid. HEENT: AT/NC, EOMI, PERRLA, MMM, no carotid bruits or JVD noted. Lungs: CTA bilaterally, moderate effort, mild decrease BL bases, no rales, ronchi or wheezing. Heart: Regular rate and rhythm; no gallop, rub audible. Abdomen: soft, obese, NTTP, ND, normal BS, no HSM. Extremities: no cyanosis, clubbing, or edema. Neurological: patient awake, alert, oriented as noted; cognitive function intact; pupils equally reactive to light and accomodation; cranial nerves II-XII grossly normal, moving all 4 extremities, no focal deficits, strength preserved, negative babinski, normal FTN and HTS. Psychiatric: affect appears normal, no acute evidence of depressive or anxiety feelings. Assessment and Plan: The patient is a 55 y/o F w/ PMHx: Depression and Anxiety, Migraines, Obesity, History of Brain aneurysm status post coiling 2008 who presents to the [facility] ED on 01/04/21 w/ history of ongoing mild right eyelid droop for the last 3 days with o phthalmology visit on day of ED presentation who discussed patient's presentation with her neurologist, Dr. Pelaez who adjusted ED visit secondary to history of prior brain aneurysm status post coiling 2008. 1. Right mild eyelid droop with questionable right vertebral artery distal filling defect concerning for CVA: Will admit to PCU, will obtain MRI Brain with and without contrast per [facility] recommendation, obtain ECHO, PT/OT/Speech/Nutrition evaluation per protocol. Will allow permissive HTN, maintain on asa, add at least moderate dose statin w/ AM FLP, fall precautions. Hemoglobin A1c, TSH, FLP, magnesium level requested. 2. Atypical dermatitis: Patient with appearance of atypical dermatitis around the lower bilateral eyelid region, nonpruritic, some also above the right eyelid, will continue to monitor and attempt to elucidate specific etiology or agent causing it. Unclear if related with #1. Additional Co-morbidities: History of chronic migraines: Patient maintained on as needed outpatient ubrelvy, ajovy, given stroke presentation will hold these agents. History of partial thyroidectomy secondary to thyroid nodule: TSH pending. Anxiety and depression: We will continue patient amitriptyline, recommend continued outpatient evaluation. History of prior brain aneurysm: Status post coiling 2008, following with Dr. Pelaez, neurology. DVT prophylaxis: SCDs, Lovenox. Visit Charges OBSV E&M: 23312 Initial observation care L3
--- NOTE | 2021-01-04 17:16 | ECHOD_ITS ---
Reason For Study: TIA/CVA Procedure This was a 2D Doppler, Color Flow transthoracic echocardiogram. The study was technically difficult. Exam performed portable in patient room. Left Ventricle Normal LV size. Left ventricular systolic function is normal. The estimated ejection fraction is 65 %. Transmitral doppler flow suggestive of impaired relaxation of left ventricle. No regional wall motion abnormalities noted. Right Ventricle Normal RV size. Normal systolic function. Atria Normal left atrium. Normal right atrium. No doppler evidence for ASD. Bubble contrast study negative for right to left interatrial shunt. Mitral Valve There is no mitral annular calcification. Normal mitral valve. Trivial mitral valve insufficiency. Tricuspid Valve Normal tricuspid valve. Trivial tricuspid valve insufficiency. Unable to estimate RV systolic pressure/pulmonary artery pressure due to technically difficult study. Aortic Valve Trisinus/trileaflet aortic valve. Normal aortic valve. Trivial aortic valve insufficiency. Pulmonic Valve The pulmonic valve is not well visualized. Great Vessels The aortic root is not well visualized. Pericardium/Pleural No pericardial effusion. Medication Performed a rapid injection of agitated mix of 9 cc saline and 1cc air to assess for atrial septal defect. MMode/2D Measurements & Calculations LVIDd: 4.8 cm IVSd: 1.1 cm LAV(MOD-bp): 29.4 ml LVIDs: 2.6 cm LVPWd: 1.1 cm FS: 45.4 % LAV(MOD-bp) Indexed: 16.9 ml/m2 LAV(MOD-sp2): 31.0 ml LAV(MOD-sp4): 24.8 ml LA dimension(2D): 3.1 cm LA A4 area: 10.7 cm2 RA A4 area: 10.3 cm2 Time Measurements MV dec time: 0.19 sec Doppler Measurements & Calculations MV E max matthew: 78.8 cm/sec Lat Peak E' Matthew: 8.5 cm/sec Med Peak E' Matthew: 9.0 cm/sec MV A max matthew: 87.2 cm/sec E/E' lat: 9.3 E/E' med: 8.7 MV E/A: 0.90 Ao V2 max: 118.3 cm/sec LV V1 max: 98.6 cm/sec PA V2 max: 102.8 cm/sec Ao max P.6 mmHg LV V1 max P.9 mmHg ECHO/Echo Complete Interpretation Summary The study was technically difficult. Left ventricular systolic function is normal. The estimated ejection fraction is 65 %. Trivial mitral valve insufficiency. Trivial tricuspid valve insufficiency. Trivial aortic valve insufficiency. Unable to estimate RV systolic pressure/pulmonary artery pressure due to techni darrius difficult study. Transmitral doppler flow suggestive of impaired relaxation of left ventricle Bubble contrast study negative for right to left interatrial shunt. Ordering Physician: Genny Quezada Referring Physician: Johann Guy Performed By: Amina Chand RDCS, RVT
[2021-01-04 17:42] LABS: Thyroid Stim Hormone (TSH) 3.85 uIU/mL (0.358-3.74); Troponin-I HS 4.1 pg/mL (3.0-53.7)
[2021-01-04 18:09] LABS: Magnesium 2.2 mg/dL (1.6-2.6)
[2021-01-04 18:25] LABS: Hemoglobin A1c 5.6 % (3.8-5.6)
[2021-01-04] MEDS: Amitriptyline 25 MG Tablet PO (21:28)
[2021-01-04] MEDS: Amitriptyline 100 MG Tablet PO (21:28)
[2021-01-04] MEDS: Atorvastatin Calcium 80 MG Tablet PO (21:28)
[2021-01-05] VITALS (8 sets, daily range): BP systolic 130–151; BP diastolic 68–92; PULSE 66–99; RESP 16–18; TEMP 36.1–36.8; O2SAT 92–99; BMI 32.1
[2021-01-05 08:04] LABS: Absolute Lymphocyte Count 2.97 X10^3/uL (0.83-4.51); Basophil# 0.06 X10^3/uL; Basophil% 0.5 % (0-1); Eosinophil# 1.13 X10^3/uL; Eosinophils% 10.3 % (0-5); Hematocrit 42.5 % (37-47); Hemoglobin 13.8 g/dL (12.0-15.0); Lymphocyte # 2.97 X10^3/ul (0.83-4.51); Lymphocyte % 27.1 % (19-41); Mean Corp Hgb Conc 32.5 g/dL (32-36); Mean Corpuscular Hgb 28.5 pg (27.0-32.0); Mean Corpuscular Volume 87.8 fL (81-99); Mean Platelet Vol. 10.7 fl (6.2-12.0); Monocyte# 0.74 X10^3/uL; Monocyte% 6.8 % (0-10); NRBC Flagged by Analyzer 0 % (0-5); Neutrophil # 6.04 X10^3/uL (2.7-7.7); Neutrophil % 55.1 % (47-70); POSITIVE COUNT YES; POSITIVE MORPHOLOGY YES; Platelet Count 490 K/mm3 (150-450); RBC Distribution Width CV 17.1 % (11.6-14.6); Red Blood Count 4.84 M/mm3 (4.2-5.4)
[2021-01-05] MEDS: Aspirin 81 MG TAB.CHEW PO (08:20)
[2021-01-05] MEDS: Enoxaparin 40 MG/0.4 ML Syringe SC (08:20)
[2021-01-05 08:21] LABS: Anion Gap 4 (5-15); BUN 9 mg/dL (7-18); BUN/Creat Ratio 9.5 RATIO (10-20); Calcium,Total 8.7 mg/dL (8.5-10.1); Chloride 103 mmol/L (98-107); Cholesterol 204 mg/dL (200); Creatinine, Serum 0.94 mg/dL (0.55-1.02); EST Glomerular Filtration Rate 65 mL/min (>60); Est Glom Filt Rate - Afr Amer 78 mL/min (>60); Estimated Creatinine Clearance 47.43 ml/min; Glucose 80 mg/dL (74-106); High Density Lipoprotein 42 mg/dL; Potassium 3.9 mmol/L (3.5-5.1); Sodium Level 135 mmol/L (136-145); Triglycerides 109 mg/dL; Very Low Density Lipoprotein 22 mg/dL (5-40)
--- NOTE | 2021-01-05 16:10 | MRI_ITS ---
HISTORY: right eye ptosis -- hx of 3 brain aneurysm coils, 1 brain aneurysm clip EXAMINATION: MR Brain WO/W Contrast TECHNIQUE: Multiplanar and multisequence MR images of the brain were obtained with and without IV gadolinium. IV Contrast dosage and agent: dotarem 15ml COMPARISON: None FINDINGS: Extensive susceptibility artifacts from right-sided aneurysm clips. BRAIN PARENCHYMA: No MRI evidence of hemorrhage. No evidence of acute infarct. Central and cortical involutional changes are noted. There is increased T2 and FLAIR signal abnormality in the periventricular white matter. No intracranial mass or mass effect. No abnormal contrast enhancement. There is preservation of the tripp/white matter interface. Normal sella turcica, pituitary gland, infundibular stalk, optic chiasm and hypothalamus. The internal auditory canals are patent. Posterior fossa structures are unremarkable. CSF SPACES: Appropriate for age. No hydrocephalus. Basal cisterns are patent. VASCULAR SYSTEM: Normal flow voids in the major intracranial circulation. CALVARIUM, SKULL BASE, PARANASAL SINUSES AND MASTOID AIR CELLS: Clear. No discrete lytic or blastic abnormalities. ORBITS: Both globes, extraocular muscles, optic nerves and retrobulbar fat appear unremarkable. MRI/Brain W/WO Contrast IMPRESSION: Chronic involutional and white matter changes. No acute intracranial process. at 1817 Reported and signed by: Frantz Arias MD Electronically Signed: Frantz Arias MD at 18:16 EDT Tel , Service support ,
--- NOTE | 2021-01-05 16:18 | DCINST_ITS ---
Discharge Instructions Diet Discharge Diet: No restrictions Activity Discharge Activity: Return to Normal Activity Dressing / Incision Call your doctor if you observe: Shortness of breath, Dizziness, Chest pain and - (vision changes, slurred speech, intractable headache) Follow Up Care Test Results: Test results from this visit will be discussed in further detail a t your follow-up appointment, if applicable. Discharge Plan Admission Admit Date/Time: 01/04/21 17:09 Primary Reason for Your Visit: Right eyelid droop Attending Provider: Nithya Wei Primary Care Provider: Johann Guy Instructions Additional Instructions / Restrictions: Please follow-up with your neurologist Thursday morning. If you develop any worsening symptoms return back to the emergency department immediately. Discharge Orders/Prescriptions Prescriptions: Continued amitriptyline 25 mg Tablet 25 mg PO QHS RF: 0 amitriptyline 100 mg tablet 100 mg PO QHS RF: 0 Ubrelvy 100 mg tablet 100 mg PO DAILY PRN PRN (Reason: Migraine Headache) RF: 0 Ajovy Autoinjector 225 mg/1.5 mL auto-injector 225 mg SUBCUT QMONTH RF: 0 Referrals / Follow Up: Chi Polo MD [NON-STAFF] - See Referral Note (As scheduled, Thursday01/07/21) Johann Guy MD [Primary Care Provider] - In 1 Week Disposition Disposition (needs filled in before D/C Order can be placed): Home, Self Care
--- NOTE | 2021-01-05 16:23 | DS.PCM_ITS ---
Documented by User: Genny Quezada NP, AIRCRAFT PART ASSEMBLER-C 01/06/21 08:15 Providers Date of Admission: 01/04/21 Date of Discharge: 01/05/21 Primary Care Physician: Dr. Johann Guy MD Reason For Visit: EYELID DROOP Diagnosis Discharge Diagnosis (1) Drooping eyelid: Status: Acute Code(s): H02.409 - Unspecified ptosis of unspecified eyelid Medications at Discharge Home Medications Ajovy Autoinjector 225 mg SUBCUT QMONTH 01/04/21 Ubrelvy 100 mg PO DAILY PRN PRN 01/04/21 amitriptyline 25 mg PO QHS 01/04/21 amitriptyline 100 mg PO QHS 01/04/21 Hospital Course Operations None Procedures 2-D Echocardiogram Summary of Care Provided Minutes Spent on Discharge: 35 Hospital Course: Patient is a 55-year-old female admitted 01/04/2021 due to right eyelid drooping. 1. Right eye ptosis, CVA ruled out-cleared by ophthalmology. Underwent CTA of head and neck which showed prior aneurysmal clipping at the origin of the left PICA and superior aspect of the proximal right supraclinoid right internal carotid artery. Tiny filling defect in the distal portion of the right vertebral artery. Echocardiogram demonstrated an EF of 65%. MRI of brain with and without contrast showed chronic changes, no acute intracranial process. Patient has follow-up with neurology, Dr. Polo on 01/07/2021. 2. History of brain aneurysm status post coiling- follows with neurology, Dr. Polo. 3. Migraine headaches- on PRN ubrelvy, ajovy. 4. Status post partial thyroidectomy due to thyroid nodule 5. Depression-on amitriptyline. Physical Exam Const alert, oriented x3 and no apparent distress Orientation / Consciousness: awake, oriented to person, oriented to place and oriented to time HEENT normocephalic and moist oral mucous membranes Eyes PERRL, EOMs intact bilaterally and conjunctivae normal Eyes Narrative: Mild right eye ptosis. Mild upper and lower lid erythema with raised rash. Neck no lymphadenopathy Resp normal respiratory effort and clear to auscultation bilaterally Cardio regular rate, regular rhythm and no murmurs Peripheral Pulses: pulses 2+ throughout GI normal to inspection, nondistended, normoactive bowel sounds, non-tender and non-distended Extremity normal to inspection Skin no rashes or lesions noted Lesions: no lesions Rashes: no rashes Trauma: no lacerations or abrasions Neuro CN's II-XII intact bilaterally, no focal motor deficits, no sensory deficits noted and deep tendon reflexes 2+ bilaterally Psych mental status grossly normal and affect normal Patient seen and examined prior to discharge. Physical assessment as noted above. Patient is stable for discharge with follow up recommendations as noted above. This patient was seen by MARIELA Sabillon under the supervision of Dr. Wei. Medical Records Data Medical Nutrition Assessment Dietitian: Nutrition Therapy Diagnosis Start: 01/05/21 16:01 Freq: Status: Active Protocol: Document 01/05/21 16:07 AG (Rec: 01/05/21 16:07 [id number]) Nutrition Malnutrition Evidence of Malnutrition Exists No Clinical Problem None at this time Status Active Problem Recommendation Dietitian Recommendations/Changes continue regular diet; may benefit from cardiac diet given lipids however pt refuses education and is not interested in making dietary changes at this time. Weight / BMI Weight Weight: 164 lb 10.965 oz Body Mass Index (BMI) 32.1 ABG / Lab / Microbiology Data Result Diagrams: 01/05/21 07:44 01/05/21 07:44 Laboratory: Laboratory Results - last 24 hr 01/04/21 14:14: Troponin I High Sens 4.1, TSH 3.85 H 01/04/21 14:14: Magnesium 2.2 01/04/21 14:14: Hemoglobin A1c 5.6 01/05/21 07:44: WBC 11.0, RBC 4.84, Hgb 13.8, Hct 42.5, MCV 87.8, MCH 28.5, MCHC 32.5, RDW Std Deviation 54.0 H, RDW Coeff of Leonardo 17.1 H, Plt Count 490 H, MPV 10.7, Immature Gran % (Auto) 0.200, Neut % (Auto) 55.1, Lymph % (Auto) 27.1, [place] % (Auto) 6.8, Eos % (Auto) 10.3 H, Baso % (Auto) 0.5, Absolute Neuts (auto) 6.0, Absolute Lymphs (auto) 2.97, Nucleated RBC % 0 01/05/21 07:44: Sodium 135 L, Potassium 3.9, Chloride 103, Carbon Dioxide 28.0, Anion Gap 4 L, BUN 9, Creatinine 0.94, Estim Creat Clear Calc 47.43, Est GFR (MDRD) Af Amer 78, Est GFR (MDRD) Non-Af 65, BUN/Creatinine Ratio 9.5 L, Glucose 80, Calcium 8.7, Triglycerides 109, Cholesterol 204 H, LDL Cholesterol 140 H, VLDL Cholesterol 22, HDL Cholesterol 42 Radiography Diagnostic Testing: Radiology Impression Echocardiogram 01/04/21 17:16 Interpretation Summary The study was technically difficult. Left ventricular systolic function is normal. The estimated ejection fraction is 65 %. Trivial mitral valve insufficiency. Trivial tricuspid valve insufficiency. Trivial aortic valve insufficiency. Unable to estimate RV systolic pressure/pulmonary artery pressure due to technically difficult study. Transmitral doppler flow suggestive of impaired relaxation of left ventricle Bubble contrast study negative for right to left interatrial shunt. Ordering Physician: Genny Quezada Referring Physician: Johann Guy Performed By: Amina Chand RDCS, RVT D/C Instructions Discharge Diet: No restrictions Call your doctor if you observe: Shortness of breath, Dizziness, Chest pain and - (vision changes, slurred speech, intractable headache) Meaningful Use Info Meaningful Use Diagnoses (Choose all that apply): None applicable Discharge Plan Admission Admit Date/Time: 01/04/21 17:09 Primary Reason for Your Visit: Right eyelid droop Attending Provider: Nithya Wei Primary Care Provider: Johann Guy Instructions Additional Instructions / Restrictions: Please follow-up with your neurologist Thursday morning. If you develop any worsening symptoms return back to the emergency department immediately. Discharge Orders/Prescriptions Prescriptions: Continued amitriptyline 25 mg Tablet 25 mg PO QHS RF: 0 amitriptyline 100 mg tablet 100 mg PO QHS RF: 0 Ubrelvy 100 mg tablet 100 mg PO DAILY PRN PRN (Reason: Migraine Headache) RF: 0 Ajovy Autoinjector 225 mg/1.5 mL auto-injector 225 mg SUBCUT QMONTH RF: 0 Referrals / Follow Up: Chi Polo MD [NON-STAFF] - See Referral Note (As scheduled, Thursday01/07/21) Johann Guy MD [Primary Care Provider] - In 1 Week Disposition Disposition (needs filled in before D/C Order can be placed): Home, Self Care Documented by User: Dr. Nithya Wei DO 01/06/21 15:13 Providers Date of Admission: 01/04/21 Reason For Visit: EYELID DROOP Medications at Discharge Home Medications Ajovy Autoinjector 225 mg SUBCUT QMONTH 01/04/21 Ubrelvy 100 mg PO DAILY PRN PRN 01/04/21 amitriptyline 25 mg PO QHS 01/04/21 amitriptyline 100 mg PO QHS 01/04/21 Hospital Course Summary of Care Provided Minutes Spent on Discharge: 20 Hospital Course: This patient was seen in conjunction with Genny Quezada NP. The following represents my own independent history and physical examination. Please see below for any addendum to the above. Mrs. Reeves is a 55-year-old female with an extensive history of cerebral aneurysm who presented to the emergency department on 01/04/2021 with right eye ptosis. She reports that its been ongoing for approximately 3 days. She indicated she saw her cloth layer on the day of admission and he reported that her eye exam was normal with the exception of her right eye ptosis. Her cloth layer spoke to her neurologist, Dr. Polo, who recommended the patient come to the emergency room for evaluation. She has a history of cerebral aneurysm that have been stented, coiled, and clipped. Throughout her stay she was extremely frustrated we had to wait to perform the MRI to assure that her clips, stent and coils were compatible with MRI. A CTA of her head and neck were performed in the emergency department and showed no acute findings. It did demonstrate prior aneurysmal clipping at the origin of the left UPSETTER HELPER in the superior aspect of the right proximal subclinoid right internal carotid artery. Her MRI was finally completed and showed no acute findings and reported out only chronic involutional white matter changes. With the negative imaging patient was insistent on discharge. She indicates she has follow-up with Dr. Polo on Thursday. She was discharged in stable condition. Discharge diagnoses: Right eye ptosis-partial History of cerebellar aneurysm status post stenting, coiling, clipping History of migraine headaches Depression History of partial thyroidectomy Obesity History of tobacco abuse Physical Exam Const alert and oriented x3 Constitutional Narrative: Upper middle-aged white female sitting up in bed, daughter at bedside, patient appears comfortable, patient appears older than stated age General Appearance: cooperative, comfortable, well kempt, well developed and other Orientation / Consciousness: awake HEENT normocephalic, head/scalp atraumatic and moist oral mucous membranes HEENT Narrative: Mild right eye ptosis, impaired abduction of right eye-patient reports this is chronic Resp normal respiratory effort, no retractions, no use of accessory muscles and clear to auscultation bilaterally Cardio regular rate, regular rhythm, S1 normal heart sound, S2 normal heart sound, no murmurs, no rub, no gallops, no clicks and no JVD GI normal to inspection, nondistended, normoactive bowel sounds, soft to palpation, non-tender and non-distended Extremity no clubbing, cyanosis or edema Neuro oriented x3 Sensorium / Orientation: awake and alert Psych Psych Narrative: Anxious and somewhat agitated that she is in the hospital ABG / Lab / Microbiology Data Result Diagrams: 01/05/21 07:44 01/05/21 07:44 Discharge Plan Admission Admit Date/Time: 01/04/21 17:09 Primary Reason for Your Visit: Right eyelid droop Attending Provider: Nithya Wei Primary Care Provider: Johann Guy Instructions Additional Instructions / Restrictions: Please follow-up with your neurologist Thursday morning. If you develop any worsening symptoms return back to the emergency department immediately. Discharge Orders/Prescriptions Prescriptions: Continued amitriptyline 25 mg Tablet 25 mg PO QHS RF: 0 amitriptyline 100 mg tablet 100 mg PO QHS RF: 0 Ubrelvy 100 mg tablet 100 mg PO DAILY PRN PRN (Reason: Migraine Headache) RF: 0 Ajovy Autoinjector 225 mg/1.5 mL auto-injector 225 mg SUBCUT QMONTH RF: 0 Referrals / Follow Up: Chi Polo MD [NON-STAFF] - See Referral Note (As scheduled, Thursday01/07/21) Johann Guy MD [Primary Care Provider] - In 1 Week Disposition Disposition (needs filled in before D/C Order can be placed): Home, Self Care Charges/Coding Visit Charges Inpatient E&M: 95650 Disch Hosp
--- NOTE | 2021-01-05 17:03 | PCM.PN.HOSP ---
Documented by User: Genny Quezada NP, STAMP COLLECTOR-C 01/05/21 17:05 Subjective Subjective Patient seen and examined. Feels right eyelid drooping has improved. Denies neurologic symptoms or focal deficits. Received paperwork from [facility] in [place] facility regarding prior clipping/coiling. Awaiting MRI. Objective Data Objective Data Vital Signs: Vital Signs Temp Pulse Resp BP Pulse Ox 97.2 F L 99 16 130/68 H 99 01/05/21 14:30 01/05/21 14:30 01/05/21 14:30 01/05/21 14:30 01/05/21 14:30 Oxygen Flow Rate (L/min) 100 Oxygen Delivery Method Room Air Weight: 164 lb 10.965 oz Body Mass Index (BMI) 32.1 Intake & Output: Intake and Output for Last 24 Hours 01/03/21 01/04/21 01/05/21 23:59 23:59 23:59 Intake Total 480 / 480 360 / 360 Balance 480 / 480 360 / 360 Medical Nutrition Assessment Dietitian: Nutrition Therapy Diagnosis Start: 01/05/21 16:01 Freq: Status: Active Protocol: Document 01/05/21 16:07 AG (Rec: 01/05/21 16:07 [id number]) Nutrition Malnutrition Evidence of Malnutrition Exists No Clinical Problem None at this time Status Active Problem Recommendation Dietitian Recommendations/Changes continue regular diet; may benefit from cardiac diet given lipids however pt refuses education and is not interested in making dietary changes at this time. Lab / Micro Data Result Diagrams: 01/05/21 07:44 01/05/21 07:44 Labs: Laboratory Results - last 24 hr 01/04/21 14:14: Troponin I High Sens 4.1, TSH 3.85 H 01/04/21 14:14: Magnesium 2.2 01/04/21 14:14: Hemoglobin A1c 5.6 01/05/21 07:44: WBC 11.0, RBC 4.84, Hgb 13.8, Hct 42.5, MCV 87.8, MCH 28.5, MCHC 32.5, RDW Std Deviation 54.0 H, RDW Coeff of Leonardo 17.1 H, Plt Count 490 H, MPV 10.7, Immature Gran % (Auto) 0.200, Neut % (Auto) 55.1, Lymph % (Auto) 27.1, [place] % (Auto) 6.8, Eos % (Auto) 10.3 H, Baso % (Auto) 0.5, Absolute Neuts (auto) 6.0, Absolute Lymphs (auto) 2.97, Nucleated RBC % 0 01/05/21 07:44: Sodium 135 L, Potassium 3.9, Chloride 103, Carbon Dioxide 28.0, Anion Gap 4 L, BUN 9, Creatinine 0.94, Estim Creat Clear Calc 47.43, Est GFR (MDRD) Af Amer 78, Est GFR (MDRD) Non-Af 65, BUN/Creatinine Ratio 9.5 L, Glucose 80, Calcium 8.7, Triglycerides 109, Cholesterol 204 H, LDL Cholesterol 140 H, VLDL Cholesterol 22, HDL Cholesterol 42 Radiography Diagnostic Testing: Radiology Impression Echocardiogram 01/04/21 17:16 Interpretation Summary The study was technically difficult. Left ventricular systolic function is normal. The estimated ejection fraction is 65 %. Trivial mitral valve insufficiency. Trivial tricuspid valve insufficiency. Trivial aortic valve insufficiency. Unable to estimate RV systolic pressure/pulmonary artery pressure due to technically difficult study. Transmitral doppler flow suggestive of impaired relaxation of left ventricle Bubble contrast study negative for right to left interatrial shunt. Ordering Physician: Genny Quezada Referring Physician: Johann Guy Performed By: Amina Chand, BALDO, RVT Physical Exam Const alert, oriented x3 and no apparent distress Orientation / Consciousness: awake, oriented to person, oriented to place and oriented to time HEENT normocephalic and moist oral mucous membranes Eyes PERRL, EOMs intact bilaterally and conjunctivae normal Eyes Narrative: Mild right eyelid ptosis. Neck no lymphadenopathy Resp normal respiratory effort and clear to auscultation bilaterally Cardio regular rate, regular rhythm and no murmurs Peripheral Pulses: pulses 2+ throughout GI normal to inspection, nondistended, normoactive bowel sounds, non-tender and non-distended Extremity normal to inspection Skin no rashes or lesions noted Lesions: no lesions Rashes: no rashes Trauma: no lacerations or abrasions Neuro CN's II-XII intact bilaterally, no focal motor deficits, no sensory deficits noted and deep tendon reflexes 2+ bilaterally Psych mental status grossly normal and affect normal Assessment & Plan Assessment/Plan (1) Drooping eyelid: PLAN: 1. Right eye ptosis, rule out CVA-cleared by ophthalmology. Underwent CTA of head and neck which showed prior aneurysmal clipping at the origin of the left PICA and superior aspect of the proximal right supraclinoid right internal carotid artery. Tiny filling defect in the distal portion of the right vertebral artery. Echocardiogram demonstrated an EF of 65%. MRI of brain with and without contrast pending. Patient has follow-up with neurology, Dr. Polo on 01/07/2021. 2. History of brain aneurysm status post coiling- follows with neurology, Dr. Polo. 3. Migraine headaches- on PRN ubrelvy, ajovy. 4. Status post partial thyroidectomy due to thyroid nodule 5. Depression-on amitriptyline. DVT prophylaxis-Lovenox subcu This patient was seen by MARIELA Sabillon under the supervision of Dr. Wei. Documented by User: Dr. Nithya Wei DO 01/06/21 07:01 Objective Data Lab / Micro Data Result Diagrams: 01/05/21 07:44 01/05/21 07:44
== END 2021-01-05 18:53 | disposition home or self-care (01) ==
LOC: ED 16:05 → PCU 17:13
PROVIDERS: Nurse Practitioner Family; Admitting Provider Family Medicine; Emergency Provider Emergency Medicine; PCP Family Medicine; Visit Provider Internal Medicine
DX: H02.401 Unspecified ptosis of right eyelid (principal); F32.9 Major depressive disorder, single episode, unspecified; G43.909 Migraine, unspecified, not intractable, without status migrainosus; L30.9 Dermatitis, unspecified; E04.1 Nontoxic single thyroid nodule; I08.3 Combined rheumatic disorders of mitral, aortic and tricuspid valves; F41.9 Anxiety disorder, unspecified; E66.9 Obesity, unspecified; Z79.899 Other long term (current) drug therapy; Z87.891 Personal history of nicotine dependence; Z86.79 Personal history of other diseases of the circulatory system; Z68.32 Body mass index [BMI] 32.0-32.9, adult
CPT/HCPCS: 36415; 70496; 70498; 70553; 80048; 80061; 83036; 83735; 84443; 84484; 85025; 92523; 93005; 93306; 96372; 97802; 99218; 99285; A9575; Q9967; A4216; G0378

== ENCOUNTER 2021-03-14 09:30 | Outpatient (RCR) | payer MEDICAID, SELFPAY ==
[2021-01-05 08:14] VITALS: BMI 32.1
--- NOTE | 2021-01-16 09:56 | HP.PTEVAL_ITS ---
Patient's Visit Information JAVIER SAL is a 55 year old F referred to Physical Therapy by Dr. Chi Polo MD with a diagnosis of LUMBAR RADICULOAPTHY L4. Date of Evaluation: 01/16/21 Physical Therapist: Chi Alfonso PT, Cert MDT, OCS - Visit Plan Frequency: 2x /Week Duration: 8 WEEKS Plan: PT INTERVETIONS DLS ABD/BACK,POSURAL EX'S,LE FLEXABLITY /STRENGTHENING AND PATIENT EDUCATION ON POSTURE /BODY MECHANICS AND PROGRESS TO LAND THERAPY CARLOS - Subjective This 55 y/o female presents to physical therapy with lumbar radiculopathy L4. This patient has had lumbar radiculopathy for ~ 2 years which is a invidious onset of pain without predisposing factors. Patient seen DR Polo did x-rays DDD and recommended PT -[facility] PT. Location of pain right lumbar radiating lateral hip to foot with paresthesia/tingling and ache and occasional sharp pain. Aggravating factors standing/walking 5 mins, bending ,lifting. Alleviating factors sitting/rest. Coughing/sneezing-. Bowel/bladder -.Patient able to sleep. No abnormal night pain. Patient has seen pain management in past . Epidural injections helped minimal. Patient symptoms a affects QOL and functions ADL'S. Patient lumbar radiculopathy affects QOL. Further walking and standing increase leg symptoms. SOCIAL: single. VOCATION: disablity - Pain Bilateral Buttocks Pain Intensity (Out of 10): 5 Pain Intensity Range: 10, N/A Comment: standing Right Lower Extremity Pain Intensity (Out of 10): 5 Pain Intensity Range: 10 - Objective POSTURE: mild forward posture. GAIT: reciprocal pattern. SYMMTRIES: align. NEURO: c/o paresthesia/tingling ,right leg, reflexes L3-4.L4-5.L5-S12/3. MMT: quads/hams 4/5,hip flexion 4-/5,ankle 4/5. FLEXABLITY: hams mild tight. LUMBAR ROM: flexion min loss, extension mod loss pain, side glides mod loss - Special Tests L/S Slump test left side: Negative L/S Slump test right side: Negative L/S Left Straight Leg Raise: Negative L/S Right Straight Leg Raise: Negative Lumbar Standing: Flexion - Mechanical Response: No effect Lumbar Standing: Flexion - Symptoms During Testing: Increases Lumbar Standing: Flexion - Symptoms After Testing: No worse Lumbar Standing: Extension - Mechanical Response: No effect Lumbar Standing: Extension - Symptoms During Testing: Increases Lumbar Standing: Extension - Symptoms After Testing: No worse Lumbar Standing: Right Side Glides - Mechanical Response: No effect Lumbar Standing: Right Side [place] - Symptoms During Testing: No effect Lumbar Standing: Right Side [place] - Symptoms After Testing: No effect Lumbar Standing: Left Side [place] - Mechanical Response: No effect Lumbar Standing: Left Side [place] - Symptoms During Testing: No effect Lumbar Standing: Left Side [place] - Symptoms After Testing: No effect - Balance/Special Test Scores Oswestry Low Back Score: 25 - Goals Goal 1:: I with Aquatic PT and progress to land base therapy. Goal Time Frame: 4-6 Weeks Goal 2:: Patient to decrease lumbar radiculopathy by 40 % or > to walk > 5mins Goal Time Frame: 4-6 Weeks Goal 3:: Patient to improve lumbar ROM for function of recovery to improve ADL's Goal Time Frame: 4-6 Weeks Goal 4:: Patient to increase back owestry score by 5 points > to improve QOL. Goal Time Frame: 4-6 Weeks Goal 5:: Patient to improve ability to walk and stand > than 5 mins to improve ADLS' and housework tasks Goal Time Frame: 4-6 Weeks - Rehabilitation Potential Physical Therapy Diagnosis: This patient has lumbar radiculopathy with pain in right leg worse with movement test ,walking and standing affects ADLS' and housework tasks along with weakness thus will benefit from skilled PT Rehabilitation Potential: Good - Anticipated Interventions Patient/Client Instruction: Educate patient on: Condition, Plan of Care For the Purpose of:: To decrease pain, To increase ROM, To improve muscle performance and motor function, To improve ability to perform ADL's, To increase tolerance to activity/condition/position, To improve performance and independence with ADL's, To improve ability of physical actions for home/community/work/leisure, To improve health of tissue, To decrease soft tissue restriction, To increase flexibility/ROM, To reduce risk of recurrence, To improve ability to perform tasks related to life management Therapeutic Exercise to Include: Strength training, Endurance training, Postural training, Flexibilty training, In an aquatic setting, Active ROM, Dynamic Lumbar Stabilization Comment: BLE For the Purpose of:: To decrease pain, To increase ROM, To improve nutrient delivery to tissue, To increase oxygenation perfusion, To improve muscle performance and motor function, To improve ability to perform ADL's, To decrease level of supervision to perform tasks, To improve ability of physical actions for home/community/work/leisure, To improve health of tissue, To decrease soft tissue restriction, To increase flexibility/ROM, To reduce risk of recurrence Thank you for the opportunity to evaluate your patient. For Medicare and Medicare HMO plans, please review the plan of care and approve it. It will need to be FAXED BACK to us at [phone] for Medicare purposes. For Medicare only, by signing this I certify the plan of care. Please let me know if there are questions or concerns regarding this plan of care. Physician Signature: Date:
--- NOTE | 2021-03-14 09:46 | HP.PTDCSUM ---
It has been my pleasure to treat JAVIER SAL referred by Dr. Chi Polo MD, with the diagnosis of LUMBAR RADICULOAPTHY L4 for a total of 10 visit(s). Discharge Date: 03/14/21 Please see the following information for a summary of their discharge status. Subjective: Patient stated Aquatic therapy is helping. Less paresthesia ,able to walk. Plan for ENG test Bilateral Buttocks Pain Intensity (Out of 10): 3 Right Lower Extremity Pain Intensity (Out of 10): 3 L LE Pain Intensity (Out of 10): 3 % Improvement: 70 Objective/Function: POSTURE: mild forward posture. GAIT: reciprocal pattern. MMT: quads/hams 4/5,4-/5 hip ankle 4/5. LUMBAR ROM: Goal 1:: I with Aquatic PT and progress to land base therapy. Goal Progress: Goal Met Goal 2:: Patient to decrease lumbar radiculopathy by 40 % or > to walk > 5mins Goal Progress: Goal Met Goal 3:: Patient to improve lumbar ROM for function of recovery to improve ADL's Goal Progress: Goal Met Goal 4:: Patient to increase back owestry score by 5 points > to improve QOL. Goal Progress: Goal Met Goal 5:: Patient to improve ability to walk and stand > than 5 mins to improve ADLS' and housework tasks Goal Progress: Goal Met Plan: D/C Discharge Comments: RTD If there are questions or concerns regarding this patient's physical therapy, please feel free to call me at [phone]. Thank you for the referral of this patient. Sincerely, Chi Alfonso, PT, Cert MDT, OCS Balance/Gait/Functional tests - Balance/Special Test Scores Oswestry Low Back Score: 8
== END 2021-03-14 19:00 | disposition home or self-care (01) ==
LOC: PT 09:30
PROVIDERS: PCP Family Medicine; Referring Provider Psychiatry & Neurology Neurology; Visit Provider Psychiatry & Neurology Neurology
DX: M54.17 Radiculopathy, lumbosacral region (principal)
CPT/HCPCS: 97113; 97162; 97530

== ENCOUNTER 2023-01-29 08:00 | Outpatient (RCR) | payer MEDICAID, SELFPAY ==
--- NOTE | 2022-12-19 08:59 | HP.PTEVAL ---
Patient's Visit Information Visit Information Visit Information: JAVIER SAL is a 57 year old F referred to Physical Therapy by Dr. Chi Polo MD with a diagnosis of ATAXIC GAIT. Date of Evaluation: 12/19/22 Physical Therapist: Radha Pan PT, Cert MDT Visit Plan Frequency: 2-3x /Week Duration: 4-6 Weeks Plan: *CHECK AUTH NEXT VISIT: RECORD # OF VISITS APPROVED AND EXPIRATION DATE. CHECK CODES APPROVED WITH POC* *GAIT BELT FOR SAFETY - RECENT FALL HISTORY* *RECENT BACK SURGERY* NO LIFTING > 10 LBS DUE TO L ANKLE. GAIT AND BALANCE TRAINING TO HELP MEET SET GOALS. AD TRAINING NEEDED FOR SAFETY. GIVE WRITTEN HEP. Subjective Subjective: Work/Leisure: UNEMPLOYEED Disability: YES - DUE TO BRAIN aneurysms. Present symptoms: PATIENT REPORTS SHE IS UNBALANCED. STATES IT HAS BEEN GOING ON FOR 6 MONTHS TO A YEAR. Pain Scale: N/A Is it getting better, worse or staying the same: STAYING THE SAME Commenced as a result of: NO APPARENT REASON Symptoms at onset: FALLING A FEW TIMES. Previous history/Previous treatment: PT HERE IN THE PAST FOR THE SAME THING. SHE REPORTS THERAPY HELPED. SEPTEMBER 19 2022 LUMBAR SURGERY AT [facility]. PATIENT REPORTS PRIOR TO SURGERY SHE WAS HAVING A LOT OF PAIN STANDING AND WALKING BUT HER LEGS DO NOT HURT HER ANYMORE. PATIENT REPORTS MILD LBP CURRENTLY THAT GETS WORSE WITH TOO MUCH WALKING OR STANDING. Accidents: LAST FALL WAS A WK AGO WALKING GRANDSON TO CAR AT [employer]. STATES SHE scraped HER KNEE UP BUT FINE OTHERWISE. Unexplained weight loss: NO Imaging: LUMBAR PMH/Recent major surgery: BRAIN STENTS AND CLIPS. L ANKLE SURGERY. RECENT LUMBAR SURGERY. SEE BELOW. PATIENT REPORTS SHE IS HERE FOR HER BALANCE NOT PAIN BUT DOES HAVE MILD LBP SINCE BACK SURGERY 3 MONTHS AGO. OTHER: PATIENT DENIES ANY PHYSICIAN RESTRICTIONS FOR HER BACK BUT PERMANANT RESTRICTION OF NO LIFTING > 10 LBS DUE TO L ANKLE. Objective Objective: Sitting/Standing Posture: POOR. FH. RSH'S. DECREASED LORDOSIS BUT NO RELEVANT LATERAL SHIFT. Other Observations: INDEP GAIT INTO PT WITHOUT ANY ASSISTIVE DEVICES WITH LOB SEVERAL TIMES THAT WAS REGAINED INDEP'LY. DECREASED CADANCE AND DECREASED DEVON STRIDE LENGTH. Sensory deficit: DEVON LE LIGHT TOUCH SENSATION GROSSLY INTACT AND SYMMETRICAL ROM deficit: TIGHT DEVON LE HIP FLEXORS, HS'S AND GASTROC SOLEUS COMPLEX'S. Motor deficit: DEVON HIPS 4-/5, KNEES 4/5, ANKLES 4/5. PATIENT DENIES PAIN WITH TESTING. Dural Signs: NEGATIVE DEVON LE'S. Lumbar mvmt loss: flex - NIL ext - NINI R SG - MOD L SG - MOD PATIENT DENIES INCREASED LBP WITH LUMBAR ROM TESTING ALL PLANES Core strength: POOR Palpation: WELL HEALED LUMBAR INCISION. OTHER: PATIENT ONLY ABLE TO SLS ON EA LE X 2-3 SEC EA WITHOUT UE ASSIST. SEE TUG AND STS TEST RESULTS BELOW. Balance/Special Test Scores Lower Extremity Functional Score: 35 TUG Test Time Seconds: 23.10 30 Second Chair Rise Test Seconds: 4 Goals Goal 1:: PATIENT WILL COMPLETE 6 STANDS IN 30 SECS TO DEMONSTRATE IMPROVED FUNCTIONAL STRENGTH Goal Time Frame: 4-6 Weeks Goal 2:: PATIENT WILL COMPLETE TUG IN < 15 SECS TO DEMONSTRATE IMPROVED GAIT STABILITY Goal Time Frame: 4-6 Weeks Goal 3:: PATIENT WILL AMBULATE INDEP'LY X 500 FEET WITHOUT AD OR LOB TO IMPROVE ACTIVITY TOLERANCE Goal 4:: PATIENT WILL BE INDEP WITH A HEP FOR CONTINUED IMPROVEMENT ONCE FORMAL PHYSICAL THERAPY CONCLUDES. Anticipated Interventions Patient/Client Instruction: Educate patient on: Condition, Plan of Care and Risk Factors For the Purpose of:: To improve self management Therapeutic Exercise to Include: Strength training, Endurance training, Balance training, Flexibilty training, Gait and locomotor training and Neuromotor development For the Purpose of:: To improve muscle performance and motor function, To increase tolerance to activity/condition/position, To improve ability of physical actions for home/community/work/leisure and To improve gait and locomotor functions Text: Thank you for the opportunity to evaluate your patient. For Medicare and Medicare HMO plans, please review the plan of care and approve it. It will need to be FAXED BACK to us at [phone] for Medicare purposes. For Medicare only, by signing this I certify the plan of care. Please let me know if there are questions or concerns regarding this plan of care. Physician Signature: Date:
--- NOTE | 2023-01-29 09:05 | HP.PTDCSUM ---
Discharge Summary D/C summary: It has been my pleasure to treat JAVIER SAL referred by Dr. Chi Polo MD, with the diagnosis of ATAXIC GAIT for a total of 7 visit(s). Discharge Date: Please see the following information for a summary of their discharge status. Subjective Subjective: PATIENT REPORTS HER BALANCE IS A LOT BETTER. SHE REPORTS SHE IS DOING REALLY GOOD AND NOW THAT SHE HAS EXERCISES TO DO AT HOME SHE DOESN'T THINK SHE NEEDS ANY MORE THERAPY UNLESS WE DO. PATIENT REPORTS SHE IS WALKING FROM HE HOUSE TO HER DAUGHTERS HOUSE WITHOUT DIFFICULTY OR ASSISTIVE DEVICE AND SHE DROVE HERSELF TO PT TODAY. Overall Improvement % Improvement: 85 Objective Objective/Function: PATIENT WAS SEEN TODAY FOR RE-ASSESSMENT OF PROGRESS TOWARD THE SET PT GOALS AND THE NEED FOR FURTHER PHYSICAL THERAPY VS READINESS FOR DISCHARGE. PATIENT HAS DONE REALLY WELL WITH PT, SHE IS INDEP WITH A HEP AND ALL GOALS HAVE BEEN MET. SHE IS APPROPRIATE FOR AND AGREEABLE TO D/C. SEE TUG TIME AND STS SCORES BELOW. Goals Goal 1:: PATIENT WILL COMPLETE 6 STANDS IN 30 SECS TO DEMONSTRATE IMPROVED FUNCTIONAL STRENGTH Goal Progress: Goal Met Goal 2:: PATIENT WILL COMPLETE TUG IN < 15 SECS TO DEMONSTRATE IMPROVED GAIT STABILITY Goal Progress: Goal Met Goal 3:: PATIENT WILL AMBULATE INDEP'LY X 500 FEET WITHOUT AD OR LOB TO IMPROVE ACTIVITY TOLERANCE Goal Progress: Goal Met Goal 4:: PATIENT WILL BE INDEP WITH A HEP FOR CONTINUED IMPROVEMENT ONCE FORMAL PHYSICAL THERAPY CONCLUDES. Goal Progress: Goal Met Plan Plan: D/C D/C Information d/c sentence: If there are questions or concerns regarding this patient's physical therapy, please feel free to call me at [phone]. Thank you for the referral of this patient. Sincerely, Radha Pan, PT, Cert MDT Balance/Gait/Functional tests Balance/Special Test Scores Lower Extremity Functional Score: 44 TUG Test Time Seconds: 11.98 Tug Test: 20-30sec.=variable mobility 30 Second Chair Rise Test Seconds: 10 Improvement % Improvement: 85
== END 2023-01-29 09:25 | disposition home or self-care (01) ==
LOC: PT 08:00
PROVIDERS: PCP Family Medicine; Referring Provider Psychiatry & Neurology Neurology; Visit Provider Psychiatry & Neurology Neurology
DX: R26.0 Ataxic gait (principal)
CPT/HCPCS: 97110; 97162; 97164

== ENCOUNTER 2023-03-13 07:52 | Outpatient (RCR) | payer MEDICAID, SELFPAY | END 2023-03-13 19:00 | disposition home or self-care (01) | LOC: PT 07:52 | PROVIDERS: PCP Family Medicine; Visit Provider Psychiatry & Neurology Neurology | DX: M26.622 Arthralgia of left temporomandibular joint (principal) ==

== ENCOUNTER 2023-12-10 08:00 | Outpatient (RCR) | payer MEDICAID, SELFPAY ==
--- NOTE | 2023-10-27 07:52 | HP.OTEVAL ---
Patient's Visit Information Visit Information Visit Information: JAVIER SAL is a 57 year old F, referred to Occupational Therapy by Dr. Britany Marsh DO, with a diagnosis of R distal radius Fx. Date of Evaluation: 10/27/23 Occupational Therapist: Peggy Bradford Subjective Subjective: This 57 year old female referred to OT at this time due to R UE distal radius fx. pt fell resulting in radius fx. Per pt fx occurred approx September 04 and was casted two weeks X ray taken and then re casted for additional 2 weeks. cast removed October 06 and was provided with wrist immobilization to wear when active. This female is R hand dominant. Pt does not work at this time. pt reports having a difficult time with all functional tasks. ADLs Comments: pt reports able to do self care however it is very difficult Pain R wrist: Current Pain Intensity: 3 Objective Objective/Observation: pt with tenderness over ulnar side of wrist and reports a slight burning sensation ROM Forearm: R pronation 75 supination 35 degrees L pronation 90 supination 80 degrees Wrist: R 30/35 L 60/60 CMC: wfl MP: wfl IP: wfl Radial Abduction: wfl Palmar Abduction: wfl Opposition: wfl MP: wfl PIP: wfl DIP: wfl ROM Comments: pt demonstrates decreased ROM of RUE at forearm pronation supination as well as wrist flexion and extension. Strength Public Events Facilities Rental Manager: L 40# Lateral Pinch: L 5# Tripod Pinch: L 8# Strength Comments: R strength not assessed at this time to assess once healed enough for completion Edema Other: R 15 cm L 14 cm Sensation Sensation Comments: denies numbness and tingling reports slight burning over ulnar side of R wrist Quick DASH-Disab of Arm,Shoulder& Hand Quick DASH Score: 70.4525 Goals Goal:: Once clinically appropriate pt will increase R elevator repairer apprentice strength equal to non affected UE (LUE 40#) in order to perform day to day functional tasks once clinically appropriate pt will increase R lateral pinch strength equal to non affected UE (LUE 5#) in order to perform day to day tasks Once clinically appropriate pt will increase R tripod pinch strength equal to non affected UE (LUE 8#) in order to perform day to day tasks Goal:: Pt will improve R wrist flexion to 50 degrees in order to perform self care and day to day functional tasks pt will improve R wrist extension to 45 degrees in order to perform self care and day to day functional tasks pt will improve R UE forearm supination to 70 degrees in order to perform self care and day to day functional tasks Goal:: pt will decrease R wrist pain to 1/10 or less with movement in order to perform all functional tasks Goal:: Pt will decrease R wrist swelling equal to non affected UE ( 14cm) in order to improve ROM Goal:: pt will verbalize/ demonstrate 100% accuracy in proper joint protection during day to day functional tasks Goal:: pt will improve quick dash score to 45 or less in order to improve overall use of RUE during all functional tasks Rehabilitation Rehabilitation Potential: Good Anticipated Interventions Anticipated Interventions: A/AAROM/PROM, Strengthening, Massage, Modalities, Orthoses, Joint Protection/Energy Conservation, Fine Motor Coord/Osmin, ADL Training, Education re assistive Equipment, Education re Diagnosis and Home Program Visit Plan Frequency: 2x /Week Duration: 6 Weeks General Plan: This 57 year old female presents this date with R dominant hand distal radius fx with conservative healing cast immobilization 4 weeks now with wrist brace to wear during activity. Pt presents this date with pain during movement limited wrist ROM as well as forearm ROM as well as decreased strength. pt would benefit from OT services at this time for pain management, joint protection and positioning, improved ROM as well as strength once able for return to daily living tasks. TEXT: Thank you for the opportunity to evaluate your patient. For Medicare and Medicare HMO plans, please review the plan of care and approve it. It will need to be FAXED BACK to us at [phone] for Medicare purposes. Please let me know if there are questions or concerns regarding this plan of care. Physician Signature: Date:
--- NOTE | 2023-12-03 08:26 | HP.OTREVAL ---
Re-Evaluation Intro: Dr. Britany Marsh, DO, It has been my pleasure to treat JAVIER SAL over the last 10 visits for R distal radius Fx. Please see the progress note below for an update on the occupational therapy plan of care! Subjective Subjective: pt arrives doing well no new complaints. Objective Objective/Function: integration director 25 pounds lateral 8 pounds tripod 7 pounds wrist 60/[address] Plan Plan Frequency: 2x /Week Duration: 6 Weeks Visits in this POC: 6 weeks - 2x week Plan: AROM/AAROM/ PROM tendon glide strengthening continue with BTE as tolerated encourgae pt to return to normal daily activities Goals Goals Patient Goals: Regain Strength, Decrease Pain, Decrease Swelling/Stiffness, Use Hand/Wrist/Arm Normally Again, Increase ROM, Be More Independent in ADLS, Resume Former Household Responsibilities (Cooking,Cleaning,Yard, etc.) and Resume Hobbies Goal:: Once clinically appropriate pt will increase R integration director strength equal to non affected UE (LUE 40#) in order to perform day to day functional tasks --- 25 pounds once clinically appropriate pt will increase R lateral pinch strength equal to non affected UE (LUE 5#) in order to perform day to day tasks -- 8 pounds GOAL MET Once clinically appropriate pt will increase R tripod pinch strength equal to non affected UE (LUE 8#) in order to perform day to day tasks -- 7 pounds Goal:: Pt will improve R wrist flexion to 50 degrees in order to perform self care and day to day functional tasks -- 40 degrees pt will improve R wrist extension to 45 degrees in order to perform self care and day to day functional tasks -- 60 degrees pt will improve R UE forearm supination to 70 degrees in order to perform self care and day to day functional tasks -- 80 degrees GOAL MET Goal:: pt will decrease R wrist pain to 1/10 or less with movement in order to perform all functional tasks 1/10 GOAL MET Goal:: Pt will decrease R wrist swelling equal to non affected UE ( 14cm) in order to improve ROM GOAL MET Goal:: pt will verbalize/ demonstrate 100% accuracy in proper joint protection during day to day functional tasks Goal:: pt will improve quick dash score to 45 or less in order to improve overall use of RUE during all functional tasks --- 25 GOAL MET Anticipated Interventions Anticipated Interventions Anticipated Interventions: A/AAROM/PROM, Strengthening, Massage, Modalities, Orthoses, Joint Protection/Energy Conservation, Fine Motor Coord/Osmin, ADL Training, Education re assistive Equipment, Education re Diagnosis and Home Program Re-Evaluation Ending Re-evaluation ending: Please do not hesitate to contact me at [phone] by phone or if you have questions or concerns regarding this new plan of care! Sincerely, Peggy Bradford
--- NOTE | 2023-12-10 08:31 | HP.OTDCSUM_ITS ---
Discharge Summary D/C Summary: It has been my pleasure to treat JAVIER SAL under orders from Dr. Britany Marsh DO, for the diagnosis of R distal radius Fx for a total of 12 visit(s). Please see the following information for a summary of their discharge status. Overall Improvement % Improvement: 75 Objective Objective/Function: wrist 60/[address] 20 R precision assembler bench 30# R lateral pinch 8 R tripod pinch 7 Goals Patient Goals: Regain Strength, Decrease Pain, Decrease Swelling/Stiffness, Use Hand/Wrist/Arm Normally Again, Increase ROM, Be More Independent in ADLS, Resume Former Household Responsibilities (Cooking,Cleaning,Yard, etc.) and Resume Hobbies Goal:: Once clinically appropriate pt will increase R precision assembler bench strength equal to non affected UE (LUE 40#) in order to perform day to day functional tasks --- 12/09 30# NOT MET once clinically appropriate pt will increase R lateral pinch strength equal to non affected UE (LUE 5#) in order to perform day to day tasks -- 8 pounds GOAL MET Once clinically appropriate pt will increase R tripod pinch strength equal to non affected UE (LUE 8#) in order to perform day to day tasks -- 7 pounds NOT MET Goal:: Pt will improve R wrist flexion to 50 degrees in order to perform self care and day to day functional tasks -- 12/09 now 45 degrees NOT MET pt will improve R wrist extension to 45 degrees in order to perform self care and day to day functional tasks -- 60 degrees GOAL MET pt will improve R UE forearm supination to 70 degrees in order to perform self care and day to day functional tasks -- 80 degrees GOAL MET Goal:: pt will decrease R wrist pain to 1/10 or less with movement in order to perform all functional tasks 1/10 GOAL MET Goal:: Pt will decrease R wrist swelling equal to non affected UE ( 14cm) in order to improve ROM GOAL MET Goal:: pt will verbalize/ demonstrate 100% accuracy in proper joint protection during day to day functional tasks GOAL MET Goal:: pt will improve quick dash score to 45 or less in order to improve overall use of RUE during all functional tasks --- 12/09 now 15.9 GOAL MET Plan Plan: AROM/AAROM/ PROM tendon glide strengthening continue with BTE as tolerated encourgae pt to return to normal daily activities D/C Information d/c sentence: If there are questions or concerns regarding this patient's occupational therapy, please fell free to call me at [phone]. Thank you for the referral of this patient. Sincerely, Peggy Bradford
--- NOTE | 2023-12-10 08:32 | HP.OT.NRP ---
Patient Information Patient Information: JAVIER SAL was seen in my office for initial evaluation on 10/27/23. The following Plan of Care was established for this patient: POC Established Initial Frequency: 2x /Week Initial Duration: 6 Weeks Plan: AROM/AAROM/ PROM tendon glide strengthening continue with BTE as tolerated encourgae pt to return to normal daily activities Anticipated Interventions Anticipated Interventions: A/AAROM/PROM, Strengthening, Massage, Modalities, Orthoses, Joint Protection/Energy Conservation, Fine Motor Coord/Osmin, ADL Training, Education re assistive Equipment, Education re Diagnosis and Home Program Last Seen Last Seen: This patient was last seen in our office 12/10/23. Pertinent comments regarding their Occupational therapy will appear below: This 57 year old seen by OT due to distal radius fx with conservative management. Pt with progress made throughout POC in ROM, strength as decrease in pain increased knowledge in joint protection. Pt has achieved majority of goals discharfge this date pt in agreeance. At this point I will be discontinuing this patient from occupational therapy. I would be happy to see this patient again in the future if found appropriate by the physician. Thank you! Peggy Bradford
== END 2023-12-10 19:00 | disposition home or self-care (01) ==
LOC: OT 08:00
PROVIDERS: PCP Family Medicine; Referring Provider Orthopaedic Surgery; Visit Provider Orthopaedic Surgery
DX: S52.501D Unspecified fracture of the lower end of right radius, subsequent encounter for closed fracture with routine healing (principal)
CPT/HCPCS: 97110; 97140; 97165; 97530